=== PATIENT | male | born 1960 | race Asian ===

== ENCOUNTER 2023-01-27 21:30 | Inpatient (IN) | payer OTHER ==
[~2023-01-27] VITALS: Ht 177.8 cm; Wt 71.4 kg
--- NOTE | 2023-01-27 21:30 | NUR ---
PT RONAN ALS. TAKEN TO BED 10
--- NOTE | 2023-01-27 21:30 | NUR ---
GREGA FROM [place] WITH ELEVATED HR AND HOT TO TOUCH. HR IS 145. PT RECEIVED A TOTAL OF 700CC FLUIDS IV ROBOTIC TECHNICIAN. PT WITH TRACH AND G-TUBE THAT HAS LARGE AMOUNT OF DRAINAGE COMING FROM SITE.
[2023-01-27 21:33] VITALS: BP 163/104; PULSE 99; RESP 20; TEMP 99.4
[2023-01-27 22:03] VITALS: O2SAT 95
--- NOTE | 2023-01-27 22:04 | NUR ---
RN MADE AWARE
--- NOTE | 2023-01-27 22:04 | NUR ---
PT ARRIVED ON 2L VIA TRACH. PLACED PT ON COOL AEROSOL, 7L 30% FIO2. PT SPO2 IS 95%, WILL CONT TO MONITOR.
[2023-01-27 22:16] VITALS: PULSE 140; RESP 18; O2SAT 97
--- NOTE | 2023-01-27 22:30 | NUR ---
UA OBTAINED VIA F/C
[2023-01-27 22:40] LABS: APPEARANCE,URINE CLEAR (CLEAR); BILIRUBIN,URINE NEGATIVE (NEGATIVE); BLOOD, URINE NEGATIVE (NEGATIVE); COLOR,URINE YELLOW (YELLOW); LEUKOCYTE ESTERASE ,URINE NEGATIVE (NEGATIVE); NITRITE, URINE NEGATIVE (NEGATIVE); PH,URINE 7.5 (5.0-9.0); UGLUCOSE NEGATIVE (NEGATIVE)
[2023-01-27] MEDS ORDERED: DOXYCYCLINE 100 MG in DEXTROSE 5% 100 ML IV ONE (22:45)
[2023-01-27] MEDS ORDERED: NACL 0.9% 2,000 ML IV ONE (22:45)
[2023-01-27 22:49] LABS: BASOPHILS # (AUTO) 0.1 K/uL (0.00-0.22); BASOPHILS % (AUTO) 1.3 % (0.0-2.0); EOSINOPHILS # (AUTO) 0.3 K/uL (0-0.4); EOSINOPHILS % (AUTO) 3.4 % (0.0-4.0); HEMATOCRIT 38.1 % (36-52); HEMOGLOBIN 12.6 g/dL (12.0-18.0); LYMPHOCYTES # (AUTO) 1.6 K/uL (2.0-11.5); LYMPHOCYTES % (AUTO) 16.9 % (20.5-51.1); MEAN CORPUSCULAR HEMOGLOBIN 26 pg (27-31); MEAN CORPUSCULAR HGB CONC 33 g/dL (33-37); MEAN CORPUSCULAR VOLUME 79.4 fL (80-94); MONOCYTES # (AUTO) 0.6 K/uL (0.8-1.0); MONOCYTES % (AUTO) 6.7 % (1.7-9.3); NEUTROPHILS # (AUTO) 6.8 K/uL (1.8-7.7); NEUTROPHILS % (AUTO) 71.7 % (42.2-75.2); PLATELET COUNT (AUTO) 651 K/uL (140-450); RED BLOOD CELL COUNT(AUTO) 4.79 MIL/uL (4.20-6.10); RED CELL DISTRIBUTION WIDTH 17.1 % (11.6-13.7); WHITE BLOOD COUNT (AUTO) 9.5 K/uL (4.8-10.8)
[2023-01-27 23:07] LABS: ALBUMIN 3.7 g/dL (3.4-5.0); ANION GAP 17.6 (8-16); CARBON DIOXIDE 29.3 mmol/L (21-32); CREATININE 0.8 mg/dL (0.6-1.3); POTASSIUM 3.9 mmol/L (3.5-5.1); TOTAL BILIRUBIN 0.4 mg/dL (0.0-1.0)
[2023-01-27] MEDS ORDERED: cefTRIAXone 1,000 MG VIAL ONE ×2 (23:24→23:30)
--- NOTE | 2023-01-27 23:30 | NUR ---
nasal swab collected and sent to lab.
[2023-01-28] VITALS (9 sets, daily range): BP systolic 130–141; BP diastolic 77–96; PULSE 95–146; RESP 18–20; TEMP 97.1–98.8; O2SAT 95–99
[2023-01-28] MEDS ORDERED: VANCOMYCIN PER PHARMACY MC PRN (00:15)
[2023-01-28] MEDS ORDERED: NACL 0.9% 1,000 ML IV SCH (00:15)
--- NOTE | 2023-01-28 00:25 | NUR ---
PT TAKEN TO CT
[2023-01-28] MEDS ORDERED: VANCOMYCIN 1,000 MG in DEXTROSE 5% 250 ML IV SCH (00:40)
[2023-01-28] MEDS ORDERED: DOXYCYCLINE 100 MG VIAL IV ONE (00:48)
--- NOTE | 2023-01-28 00:50 | NUR ---
REPORT CALLED TO FRANTZ FAGAN
--- NOTE | 2023-01-28 01:40 | NUR ---
Patient will be admitted to care of Dr. Greenfield. Admited to Telemetry. Will go to room 108B. Belongings list completed. Report to Jovita LANDRY.
--- NOTE | 2023-01-28 01:50 | NUR ---
RECEIVED PT FROM ER/ SHAN , NON VERBAL , W/ TRACH , W/ G TUBE , EXTREMITIES CONTRACTURES , W/ HX OF CVA , W/ VASQUEZ CATH , BEDBOUND , CONNECTS TO O2 AT 7LPM BY RT , O2 SAT 99 5 TO 88 % TRANSFER TO BED BY MANUALLY , WILL DO FURTHER ADMISSION ASSESSMENT , ENSURE PT'S SAFETY , PUT PT ON FALL RISK PREVENTION MEASURES , LOW SINGH SCALE , G TUBE SITE THERE IS SLIGHTLY REDNESS ON G TUBE ORIFICE , BUT STILL SKIN INTACT , G TUBE SITE W/ GAUZE PAD THERE IS SMAL AMOUNT OF BROWN DISCHARGE LEAAKING FROM G TUBE ORIFICE - WILL MONITOR , WILL ENDORSE . ON TELE MONITOR BIT TACH TEMP RE CHECK 98 .8 F . Addendum: 01/28/23 at 0244 by Cleopatra Kruse RN STILL W/ ONGOING VIBRAMYCIN TIV FROM ER , ONCE IT FINISH , WILL GIVE VANCO TIV ORDERED .
[2023-01-28] MEDS ORDERED: VANCOMYCIN 1,000 MG VIAL ONE (04:10)
--- NOTE | 2023-01-28 04:50 | NUR ---
PT SHOWS AGITATION , KEEP TRYING TO PULL THE G TUBE AND TRACH AND TELE BOX , HR HIGHEST IS 160 - WILL REFER TO DR. PHILLIP . TEMP RE CHECK 98. 7 F
--- NOTE | 2023-01-28 04:52 | NUR ---
RT AT BEDSIDE
--- NOTE | 2023-01-28 05:56 | NUR ---
RE PAGED DR Matt FLIGHT AGENT DR MEDEL - RESPONDED - MADE NEW ORDERS AND WILL CARRY OUT . INFORMED DR. MEDEL PT HAD HIGHEST HR UP TO 165 THE LOWEST IS 130 THE LATEST IS 135 - PER DR Vernell MEDEL - CONT. TO MONITOR .
[2023-01-28] MEDS: LORazepam 2 MG/ML VIAL IVP PRN (06:05)
[2023-01-28] MEDS ORDERED: PIPERACILLIN/TAZOBACTAM 3.375 GM VIAL IV ONE (06:15)
[2023-01-28] MEDS: PIPERACILLIN/TAZOBACTAM 3.375 GM in DEXTROSE 5% 50 ML IV SCH ×3 (06:22→18:41)
--- NOTE | 2023-01-28 07:05 | NUR ---
STILL HR 150'S , ATIVAN GIVEN STILL AGITATES , WILL SUGGESTING RESTRAINT , FLACC 7 - NO PAIN MED , AFEBRILE REFERRED TO DR. STARK - THE TEXT FOR DR. STARK I SHOWS IT TO FRANTZ CHAWLA , I TELLS HER SHE HAVE TO FF UP FROM DR. STARK THE FURTHER ORDERS . FRANTZ CHAWLA VERBALIZES UNDERSTANDING .
--- NOTE | 2023-01-28 07:18 | NUR ---
ENDORSED THE PT FOR CONT. OF CARE .
--- NOTE | 2023-01-28 07:19 | NUR ---
RECEIVED BEDSIDE REPORT FROM MORNING SHIFT FOR CONTINUITY OF CARE. PT IS AWAKE, CURRENT HR IS 150, ON TRACH. WILL REVIEW AND CONTINUE POC.
[2023-01-28] MEDS ORDERED: HALOPERIDOL IM 5 MG/ML VIAL IM PRN (07:45)
[2023-01-28] MEDS ORDERED: METOPROLOL 5 MG/5 ML VIAL IV SCH (08:04)
--- NOTE | 2023-01-28 08:35 | NUR ---
PT'S HR IS 150, MD ORDERED METOPROLOL 5MG IV ONCE.
[2023-01-28] MEDS: METOPROLOL 25 MG TAB PO SCH ×2 (09:20→20:39)
--- NOTE | 2023-01-28 09:25 | NUR ---
METOPROLOL PO NOT GIVEN, GTUBE IS OUT AND INFECTED. METOPROLOL IV GIVEN AN HOUR AGO. PT IS STABLE NORMAL HR.
--- NOTE | 2023-01-28 09:30 | NUR ---
PT HR IS 90 AND BP IS 111/73. PT IS STABLE, WILL CONTINUE TO MONITOR.
[2023-01-28 10:05] LABS: BASOPHILS # (AUTO) 0.1 K/uL (0.00-0.22); BASOPHILS % (AUTO) 0.5 % (0.0-2.0); EOSINOPHILS # (AUTO) 0.2 K/uL (0-0.4); HEMATOCRIT 36.1 % (36-52); HEMOGLOBIN 11.8 g/dL (12.0-18.0); LYMPHOCYTES # (AUTO) 1.2 K/uL (2.0-11.5); LYMPHOCYTES % (AUTO) 10.9 % (20.5-51.1); MEAN CORPUSCULAR HEMOGLOBIN 27 pg (27-31); MEAN CORPUSCULAR HGB CONC 33 g/dL (33-37); MEAN CORPUSCULAR VOLUME 81.3 fL (80-94); MONOCYTES # (AUTO) 0.9 K/uL (0.8-1.0); MONOCYTES % (AUTO) 8.5 % (1.7-9.3); NEUTROPHILS # (AUTO) 8.3 K/uL (1.8-7.7); NEUTROPHILS % (AUTO) 78.1 % (42.2-75.2); PLATELET COUNT (AUTO) 576 K/uL (140-450); RED BLOOD CELL COUNT(AUTO) 4.45 MIL/uL (4.20-6.10); RED CELL DISTRIBUTION WIDTH 17.4 % (11.6-13.7); WHITE BLOOD COUNT (AUTO) 10.6 K/uL (4.8-10.8)
[2023-01-28 10:15] LABS: ANION GAP 11.8 (8-16); CARBON DIOXIDE 33.9 mmol/L (21-32); CREATININE 0.7 mg/dL (0.6-1.3); POTASSIUM 3.7 mmol/L (3.5-5.1)
[2023-01-28] MEDS ORDERED: DEXT 5% / NACL 0.9% 500 ML IV SCH (11:50)
[2023-01-28] MEDS: DEXT 5% / NACL 0.45% 1,000 ML IV SCH ×2 (12:28→23:02)
--- NOTE | 2023-01-28 12:50 | NUR ---
SPUTUM DONE AND SENT TO LAB
[2023-01-28] MEDS ORDERED: bisacodyL 10 MG SUPP RC SCH (13:22)
--- NOTE | 2023-01-28 16:00 | NUR ---
GTUBE WAS REMOVED, COLONOSTOMY BAG PLACED. DR SPENCER IS GOING TO PUT THE GTUBE BACK TOMORROW 01/29/23.
[2023-01-28] MEDS: VANCOMYCIN 1,000 MG in DEXTROSE 5% 250 ML IV SCH (16:35)
[2023-01-28] MEDS: METOCLOPRAMIDE 10 MG/2 ML INJ VIAL IVP SCH (16:35)
[2023-01-28] MEDS ORDERED: NACL 0.9% 500 ML IV ONE ×2 (17:45)
[2023-01-28] MEDS ORDERED: DILTIAZEM 25 MG/5 ML VIAL IVP ONE (18:00)
[2023-01-28 18:10] LABS: ANION GAP 12.7 (8-16); CARBON DIOXIDE 31.7 mmol/L (21-32); CREATININE 0.7 mg/dL (0.6-1.3); POTASSIUM 3.4 mmol/L (3.5-5.1)
--- NOTE | 2023-01-28 19:30 | NUR ---
ENDORSE PT TO FRUIT HARVEST WORKER NURSE FOR CONTINUITY OF CARE. PT IS STABLE, NO SIGNS OF DISTRESS. K COVERAGE ENDORSED, INFORMED. CALL LIGHT WITHIN REACH.
--- NOTE | 2023-01-28 19:31 | NUR ---
RECEIVED PT FROM MORNING SHIFT NURSE. PT IS APHASIC AND BEDBOUND. PT IS ON T-PIECE 8LPM WITH FIO2 OF 28% AND ON NPO. PT HAS IV ON LEFT HAND GAUGE 20 RUNNING WITH D5 1/2 NS AT 100ML/HR. PT HAS COLOSTOMY BAG AND G-TUBE WAS REMOVED THIS MORNING. PT HAS REDNESS ON SACRAL AREA AND ON ST IN TELE MONITOR. NO S/S OF RESPIRATORY DISTRESS NOTED. ALL SAFETY MEASURES IMPLEMENTED. BED IN LOW POSITION, BED WHEELS ON LOCK AND CALL LIGHT WITHIN REACH.
[2023-01-28] MEDS ORDERED: KCL 20 MEQ IN 100 mL PREMIX 100 ML IV ONE (19:40)
--- NOTE | 2023-01-28 20:37 | NUR ---
SCHEDULED AND PRESCRIBED MEDICATION WAS GIVEN TO PT PER MD ORDER EXCEPT LOPRESSOR DUE TO NO MEANS OF MEDICATION ACCESS FOR THE PT. ALL SAFETY MEASURES IMPLEMENTED. BED IN LOW POSITION, BED WHEELS ON LOCK AND CALL LIGHT WITHIN REACH.
--- NOTE | 2023-01-28 22:00 | NUR ---
SUCTIONED AND TURNED THE PT. NO RESPIRATORY DISTRESS NOTED. ALL SAFETY MEASURES IMPLEMENTED. BED IN LOW POSITION, BED WHEELS ON LOCK AND CALL LIGHT WITHIN REACH.
[2023-01-29] VITALS (9 sets, daily range): BP systolic 120–151; BP diastolic 77–94; PULSE 72–124; RESP 18–20; TEMP 97.6–98.6; O2SAT 94–100
[2023-01-29] MEDS: PIPERACILLIN/TAZOBACTAM 3.375 GM in DEXTROSE 5% 50 ML IV SCH ×5 (00:03→23:34)
--- NOTE | 2023-01-29 00:03 | NUR ---
SCHEDULED AND PRESCRIBED MEDICATION WAS GIVEN TO PT PER MD ORDER. ALL SAFETY MEASURES IMPLEMENTED. BED IN LOW POSITION, BED WHEELS ON LOCK AND CALL LIGHT WITHIN REACH.
--- NOTE | 2023-01-29 02:00 | NUR ---
PT IS ON SLEEP. CHEST RISE AND FALL SYMMETRICALLY NOTED. RESPIRATION IS EVEN AND UNLABORED. ALL SAFETY MEASURES IMPLEMENTED. BED IN LOW POSITION, BED WHEELS ON LOCK AND CALL LIGHT WITHIN REACH.
[2023-01-29] MEDS: VANCOMYCIN 1,000 MG in DEXTROSE 5% 250 ML IV SCH (03:27)
--- NOTE | 2023-01-29 04:00 | NUR ---
MORNING CARE WAS GIVEN TO PT. SUCTION THE PT, CLEANED AND CHANGED GOWN, CHUCKS, LINENS AND BLANKET. EMPTIED COLOSTOMY BAD WITH GASTRIC OUTPUT OF 100ML. ALL SAFETY MEASURES IMPLEMENTED. BED IN LOW POSITION, BED WHEELS ON LOCK AND CALL LIGHT WITHIN REACH.
--- NOTE | 2023-01-29 07:29 | NUR ---
PT IS STABLE. ENDORSED PT TO MORNING SHIFT NURSE FOR CONTINUITY OF CARE.
--- NOTE | 2023-01-29 07:50 | NUR ---
RECEIVED PATIENT ON 7L OXYGEN ON TRACH, PATIENT SATURATIONS 98%. NO SIGN OF DISTRESS. WILL CONTINUE TO MONITOR.
--- NOTE | 2023-01-29 09:03 | NUR ---
PATIENT HAS BEEN SCREENED AND CATEGORIZED HIGH NUTRITION RISK. PATIENT WILL BE SEEN WITHIN 1-2 DAYS OF ADMISSION. 01/29/23-01/30/23 FNS CONSULT FOR PATIENT FOR UNHEALED WOUND AND LOW SINGH SCORE AND POSSIBLE G-TUBE RECOMMENDATION RECEIVED ON 01/26/23. LEFTY HERNANDEZ RD
[2023-01-29 09:49] LABS: BASOPHILS % (AUTO) 0.7 % (0.0-2.0); EOSINOPHILS # (AUTO) 0.4 K/uL (0-0.4); EOSINOPHILS % (AUTO) 5.7 % (0.0-4.0); HEMATOCRIT 33.8 % (36-52); HEMOGLOBIN 10.8 g/dL (12.0-18.0); LYMPHOCYTES # (AUTO) 1.6 K/uL (2.0-11.5); LYMPHOCYTES % (AUTO) 24.9 % (20.5-51.1); MEAN CORPUSCULAR HEMOGLOBIN 26 pg (27-31); MEAN CORPUSCULAR HGB CONC 32 g/dL (33-37); MEAN CORPUSCULAR VOLUME 81.9 fL (80-94); MONOCYTES # (AUTO) 0.6 K/uL (0.8-1.0); MONOCYTES % (AUTO) 9.9 % (1.7-9.3); NEUTROPHILS # (AUTO) 3.7 K/uL (1.8-7.7); NEUTROPHILS % (AUTO) 58.8 % (42.2-75.2); PLATELET COUNT (AUTO) 521 K/uL (140-450); RED BLOOD CELL COUNT(AUTO) 4.12 MIL/uL (4.20-6.10); RED CELL DISTRIBUTION WIDTH 17.4 % (11.6-13.7); WHITE BLOOD COUNT (AUTO) 6.3 K/uL (4.8-10.8)
[2023-01-29] MEDS: DEXT 5% / NACL 0.45% 1,000 ML IV SCH ×2 (10:00→18:46)
[2023-01-29] MEDS: METOPROLOL 5 MG/5 ML VIAL IV SCH ×4 (10:03→23:47)
[2023-01-29] MEDS: METOCLOPRAMIDE 10 MG/2 ML INJ VIAL IVP SCH ×3 (10:05→17:59)
[2023-01-29 10:06] LABS: ANION GAP 0.6 (8-16); CARBON DIOXIDE 30.6 mmol/L (21-32); POTASSIUM 3.2 mmol/L (3.5-5.1)
[2023-01-29] MEDS: KCL 20 MEQ IN 100 mL PREMIX 200 ML IV PRN (10:28)
--- NOTE | 2023-01-29 13:20 | NUR ---
DR. SPENCER WAS HERE AND NEW G-TUBE WAS PLACED. PATIENT TOLERATE PROCEDURE. DIETITIAN RECOMMENDATION RECEIVED FOR TUBE FEEDING: VITAL START FROM 20ML/HR (GOAL 75ML/HR) WITH FRESH WATER FLUSHING 175ML Q6HR. ADMISSION TEAM CALL FOR PATIENT'S ELIGIBILITY TO SIGN CONSENT. PATIENT'S NEXT KIN, CLAUDETTE GOLDSMITH ([phone]), CALLED AND LEFT CALL BACK PHONE NUMBER ([phone]). WILL CONTINUE TO MONITOR Addendum: 01/29/23 at 1958 by Naina Ramirez RN ENDORSE PATIENT TO PM SHIFT NURSE WHILE IV D51/2NS INFUSING, NEW G-TUBE IN PLACE BUT LEAKING. PATIENT'S BP (FROM 151/94 TO 134/73) AND PULSE FORM 109 TO 77 AFTER 3 DOSE METOPROLOL GIVEN; PM SHIFT NURSE AWARE THAT NEW G-TUBE IS LEAKING AND WILL F/U.
--- NOTE | 2023-01-29 14:46 | NUR ---
01/29/23 RD INITIAL ASSESSMENT COMPLETED PLEASE REFER TO NUTRITION ASSESSMENT UNDER CARE ACTIVITY FOR ESTIMATED NUTRITIONAL NEEDS. 1. RD RECOMMENDS VITAL A.F. AT GOAL RATE OF 75ML/HR WITH FWF OF 175ML Q6H TOLERATED OR PER MD. THIS WILL PROVIDE 2,160 CALORIES AND 135 GRAMS OF PROTEIN. START AT 20ML/HR AND INCREASE 20ML Q4H OR TOLERATED. 2. RD WILL CONTINUE TO FOLLOW GI ISSUES, TUBE FEEDING TOLERANCE, GRV, NUTRITION RELATED LAB VALUES, SKIN INTEGRITY AND WEIGHT. 3. RD TO FOLLOW-UP 2-3 DAYS, HIGH RISK LEFTY HERNANDEZ RD
--- NOTE | 2023-01-29 17:40 | NUR ---
LATER ENTRY FOR 01/29/2023, NURSE RECEIVE LAB CALL FOR VANCOMYCIN TROUGH 23.6 WHICH IS OVER 20. PHARMACY CALL WITH 10 MINUTES, AND RECEIVE ADVISE FROM PHARMACIST TO HOLD VANCOMYCIN UNTIL NEXT DAY AFTER RANDOM VANCOMYCIN TROUGH DRAW.
--- NOTE | 2023-01-29 19:35 | NUR ---
received patient from am nurse for continuity of care. pt is stable
--- NOTE | 2023-01-29 19:41 | NUR ---
PT SEEN AND ASSESSED. PT ON COOL AEROSOL MIST 6L AND 28% WITH SPO2 OF 98%. NO RESPIRATORY DISTRESS NOTED AT THIS TIME. SUCTION SMALL WHITE THICK SECRETIONS FROM TRACH TUBE.
[2023-01-30] VITALS (9 sets, daily range): BP systolic 126–144; BP diastolic 75–86; PULSE 65–103; RESP 18–19; TEMP 97.1–98.8; O2SAT 98–100
[2023-01-30] MEDS: DEXT 5% / NACL 0.45% 1,000 ML IV SCH (04:23)
[2023-01-30] MEDS: PIPERACILLIN/TAZOBACTAM 3.375 GM in DEXTROSE 5% 50 ML IV SCH ×4 (05:45→23:34)
[2023-01-30] MEDS: METOPROLOL 5 MG/5 ML VIAL IV SCH (05:47)
[2023-01-30 06:15] LABS: BASOPHILS % (AUTO) 0.5 % (0.0-2.0); EOSINOPHILS # (AUTO) 0.1 K/uL (0-0.4); EOSINOPHILS % (AUTO) 1.8 % (0.0-4.0); HEMATOCRIT 33.3 % (36-52); HEMOGLOBIN 10.7 g/dL (12.0-18.0); LYMPHOCYTES # (AUTO) 1.5 K/uL (2.0-11.5); LYMPHOCYTES % (AUTO) 22.6 % (20.5-51.1); MEAN CORPUSCULAR HEMOGLOBIN 26 pg (27-31); MEAN CORPUSCULAR HGB CONC 32 g/dL (33-37); MEAN CORPUSCULAR VOLUME 82.3 fL (80-94); MONOCYTES # (AUTO) 0.5 K/uL (0.8-1.0); NEUTROPHILS # (AUTO) 4.5 K/uL (1.8-7.7); NEUTROPHILS % (AUTO) 67.1 % (42.2-75.2); PLATELET COUNT (AUTO) 529 K/uL (140-450); RED BLOOD CELL COUNT(AUTO) 4.05 MIL/uL (4.20-6.10); RED CELL DISTRIBUTION WIDTH 17.3 % (11.6-13.7); WHITE BLOOD COUNT (AUTO) 6.7 K/uL (4.8-10.8)
[2023-01-30 06:32] LABS: ANION GAP 12.7 (8-16); CARBON DIOXIDE 31.3 mmol/L (21-32); CREATININE 0.9 mg/dL (0.6-1.3)
[2023-01-30] MEDS: KCL 20 MEQ IN 100 mL PREMIX 200 ML IV PRN (06:48)
--- NOTE | 2023-01-30 07:00 | NUR ---
RECEIVED BEDSIDE REPORT FROM NIGHTSHIFT NURSE. PT IS ASLEEP IN BED, NO SIGNS OF DISTRESS, WOKE TO NAME AND TOUCH. WILL CONTINUE WITH PT CARE.
[2023-01-30] MEDS: METOPROLOL 25 MG TAB PO SCH ×2 (08:37→20:07)
[2023-01-30] MEDS: DEXTROSE 5% 1,000 ML IV SCH ×2 (08:39→17:15)
[2023-01-30] MEDS: METOCLOPRAMIDE 10 MG/2 ML INJ VIAL IVP SCH ×3 (08:40→18:51)
[2023-01-30] MEDS: KCL 20 MEQ IN 100 mL PREMIX 200 ML IV SCH ×2 (08:40→18:50)
--- NOTE | 2023-01-30 10:28 | NUR ---
MASD TO ABDOMINAL WALL CHEMICAL BURN FROM GT SITE LEAKAGE. CLEANS WITH NS, APPLY Z GUARD BID AND PRN IF SOILING, COVER WITH DRY DRESSING. PENDING GI CONSULT.
--- NOTE | 2023-01-30 10:41 | NUR ---
PT RESTING COMFORTABLY. SATURATION 96% ON COOL AEROSOL, 28%. CALL LIGHT WITHIN REACH. WILL CONTINUE TO MONITOR.
--- NOTE | 2023-01-30 10:45 | NUR ---
WOUND CARE NOTE: SKIN ASSESSMENT DONE, PT WITH OLD HEALED SCAR TISSUE TO SACRALCOCCYX, PALE IN COLOR. PT. WITH LBMX1 DURING ASSESSMENT. MASD TO BUTTOCKS AND GROINS. SEVERE CONTRACTURES TO BILATERAL KNEES/HIPS. PT. WITH LOW SINGH SCALE AT HIGH RISK, CONTINUE TO FOLLOW PRESSURE INJURY PREVENTION INTERVENTIONS. -FREQUENT GABRIELE-CARE, APPLY Z GUARD TO BUTTOCKS AND GROINS BID AND PRN IF SOILING -POSITIONING: TURN AND REPOSITION PATIENT Q 2H OR SOONER USE PILLOWS TO KEEP BONY PROMINENCES FROM DIRECT CONTACT WITH SURFACES USE REPOSITIONING WEDGES TO PROVIDE 30-DEGREE ANGLE FOR SIDE LYING POSITIONS OFFLOADING OR FOAM DRESSING TO ALL TUBING TO PREVENT MEDICAL DEVICES RELATED PRESSURE INJURY -RE-EVALUATING AND MANAGING INCONTINENCE MONITOR SKIN CONDITION DURING POSITION CHANGE DO NOT MASSAGE REDNESS, BONY PROMINENCES FREQUENT GABRIELE-CARE AND PROVIDE BARRIER CREAMS PRN IF SOILING MOISTURE CONTROL BY OFFER BED RICKS/URINAL /ABSORBENT PAD TO WICK AND HOLD MOISTURE KEEP SKIN DRY AND PROTECT FROM FRICTION -MANAGE FRICTION/SHEAR/MOBILITY KEEP HOB AT THE LOWEST LEVEL OF ELEVATION NO MORE THAN 30 DEGREE UNLESS OTHERWISE CONTRAINDICATED USE LIFT SHEET OR TRANSFER DEVICE TO MOVE PATIENT AND PREVENT LATERAL SHEER. PROTECT HEELS, ELBOWS BONY PROMINENCES WITH SKIN BERRIES OR FOAM DRESSING IF EXPOSED TO FRICTION OFFLOAD BILATERAL HEELS BY PLACING PILLOWS UNDER CALVES AT ALL TIMES, UNLESS OTHERWISE CONTRAINDICATED -PRESSURE REDISTRIBUTION SURFACE THERAPY SAMMY ISOFLEX MATTRESS -NUTRITION: PLEASE FOLLOW RD RECOMMENDATIONS AND OFFER NUTRITION SUPPLEMENTS IF ORDERED. PLEASE CONTACT WOUND CARE NURSE FOR ANY QUESTION AND CHANGE OF WOUND CONDITION.
--- NOTE | 2023-01-30 11:24 | NUR ---
RECEIVED ORDER FOR RENEWAL OF RESTRAINTS. NEW RESTRAINTS ORDER EXPIRES 01/31/23 @1124.
[2023-01-30] MEDS: VANCOMYCIN 750 MG in DEXTROSE 5% 250 ML IV SCH ×2 (12:04→20:07)
[2023-01-30] MEDS: VALPROIC ACID 250 MG/5 ML UDC PO SCH ×2 (15:08→18:50)
[2023-01-30] MEDS: Z-GUARD PASTE TP SCH (15:09)
--- NOTE | 2023-01-30 19:20 | NUR ---
RECEIVED PT IN BED ASLEEP. NO S/SX OF PAIN NOR DISCOMFORT. NO ACUTE RESPIRATORY DISTRESS. G-TUBE CLAMPED. SKIN WARM AND DRY TO TOUCH. IVF INFUSING WELL ORDERED. BED IN THE LOWEST AND LOCKED POSITION FOR SAFETY, CALL LIGHT PLACED WITHIN REACH.
--- NOTE | 2023-01-30 20:10 | NUR ---
SCHEDULED MEDICATIONS GIVEN. ORAL CARE RENDERED. HEAD OF THE BED ELEVATED.
--- NOTE | 2023-01-30 21:50 | NUR ---
REPOSITIONED PT FOR COMFORT. HEAD OF THE BED ELEVATED. CALL LIGHT WITHIN REACH.
[2023-01-31] VITALS (13 sets, daily range): BP systolic 90–141; BP diastolic 54–89; PULSE 66–97; RESP 16–20; TEMP 98–98.8; O2SAT 88–100
--- NOTE | 2023-01-31 | NUR ---
PATIENT HAD A LARGE BOWEL MOVEMENT, CLEANED PT. G-TUBE SITE NOTED TO BE LEAKING, CLEANED AND CHANGED DRESSING. TRACH AND ORAL SUCTIONING DONE, ORAL CARE RENDERED. MADE COMFORTABLE IN BED. CALL LIGHT PLACED WITHIN REACH. HEAD OF THE BED ELEVATED.
[2023-01-31] MEDS: Z-GUARD PASTE TP SCH ×2 (00:36→15:45)
[2023-01-31] MEDS: DEXTROSE 5% 1,000 ML IV SCH (01:33)
--- NOTE | 2023-01-31 05:00 | NUR ---
AM CARE RENDERED. MADE COMFORTABLE IN BED. CALL LIGHT WITHIN REACH.
[2023-01-31] MEDS: PIPERACILLIN/TAZOBACTAM 3.375 GM in DEXTROSE 5% 50 ML IV SCH ×2 (05:06→15:32)
--- NOTE | 2023-01-31 06:24 | NUR ---
PATIENT IS ASLEEP. NO DISTRESS NOTED. ALL NEEDS ATTENDED TO. SAFETY PRECAUTIONS MAINTAINED DURING THE SHIFT, CALL LIGHT REMAINS WITHIN REACH.
--- NOTE | 2023-01-31 08:00 | NUR ---
received patient in bed, resting comfortably, trach to T-piece wit 28% fiO2 @ O2@ 6lpm. tolerating well. G-tube dressing soaked with black color drainage, G-tube site leaking, dressing changed, shift assessment done and documented, R hand mitten on for safety, checked and released for 15 minutes, no injury noted. will continue to monitor closely.
[2023-01-31 08:18] LABS: BASOPHILS % (AUTO) 0.6 % (0.0-2.0); EOSINOPHILS # (AUTO) 0.4 K/uL (0-0.4); EOSINOPHILS % (AUTO) 7.3 % (0.0-4.0); HEMATOCRIT 30.5 % (36-52); HEMOGLOBIN 9.7 g/dL (12.0-18.0); LYMPHOCYTES # (AUTO) 1.6 K/uL (2.0-11.5); MEAN CORPUSCULAR HEMOGLOBIN 26 pg (27-31); MEAN CORPUSCULAR HGB CONC 32 g/dL (33-37); MEAN CORPUSCULAR VOLUME 81.5 fL (80-94); MONOCYTES # (AUTO) 0.4 K/uL (0.8-1.0); MONOCYTES % (AUTO) 6.6 % (1.7-9.3); NEUTROPHILS # (AUTO) 3.2 K/uL (1.8-7.7); NEUTROPHILS % (AUTO) 57.5 % (42.2-75.2); PLATELET COUNT (AUTO) 477 K/uL (140-450); RED BLOOD CELL COUNT(AUTO) 3.74 MIL/uL (4.20-6.10); RED CELL DISTRIBUTION WIDTH 16.7 % (11.6-13.7); WHITE BLOOD COUNT (AUTO) 5.6 K/uL (4.8-10.8)
[2023-01-31 08:26] LABS: ANION GAP 10.4 (8-16); CARBON DIOXIDE 29.7 mmol/L (21-32); CREATININE 0.7 mg/dL (0.6-1.3); POTASSIUM 3.1 mmol/L (3.5-5.1)
[2023-01-31] MEDS: VALPROIC ACID 250 MG/5 ML UDC PO SCH ×3 (10:33→17:00)
[2023-01-31] MEDS: METOCLOPRAMIDE 10 MG/2 ML INJ VIAL IVP SCH ×3 (10:33→17:41)
[2023-01-31] MEDS: METOPROLOL 25 MG TAB PO SCH ×2 (10:33→23:15)
[2023-01-31] MEDS: VANCOMYCIN 750 MG in DEXTROSE 5% 250 ML IV SCH (10:34)
--- NOTE | 2023-01-31 12:00 | NUR ---
G-tube site leaking, dressing changed, will continue to monitor.
[2023-01-31] MEDS ORDERED: POTASSIUM CHL 20 MEQ/ 1/2 NS 1,000 ML IV SCH (12:35)
--- NOTE | 2023-01-31 14:00 | NUR ---
CHECKED ON PT AND O2 SATURATION WAS DOWN TO 88%. SUCTION MODERATE AMOUNT OF THICK GREEN SECRETIONS WITH ESTRADA VIA TRACH. TITRATED O2 TO 10L AND 40%. O2 SATURATION NOW 93% CALL LIGHT ACCESSIBLE AND WITHIN REACH.
--- NOTE | 2023-01-31 15:26 | NUR ---
01/31/23 RD FOLLOW UP COMPLETED PLEASE REFER TO NUTRITION ASSESSMENT UNDER CARE ACTIVITY FOR ESTIMATED NUTRITIONAL NEEDS. 1. RD RECOMMENDS ONCE MEDICALLY APPROPRIATE TO START TUBE FEEDING OF VITAL A.F. AT 20 ML PER HOUR AND INCREASE BY 20ML Q4H. GOAL RATE OF 60ML/HR WITH FWF OF 250ML Q6H. THIS WILL PROVIDE 1,728 CALORIES AND 105 GRAMS OF PROTEIN, MEETING AT LEAST 75% OF PATIENTS ESTIMATED NUTRITIONAL NEEDS. 2. RD WILL MONITOR TUBE FEEDING, WEIGHT, GI ISSUES AND NUTRITION RELATED LAB VALUES. 3. RD TO FOLLOW-UP 2-3 DAYS, HIGH RISK LEFTY HERNANDEZ RD
[2023-01-31] MEDS: POTASSIUM CHLORIDE 20% 40 MEQ/15 ML UDC GT SCH ×2 (15:31→17:30)
[2023-01-31] MEDS ORDERED: ZOS4.5PM IV (16:20)
[2023-01-31] MEDS ORDERED: VALP-22 PO (16:20)
[2023-01-31] MEDS ORDERED: METO25TA PO (16:20)
--- NOTE | 2023-01-31 16:30 | NUR ---
G-tube dressing soaked with black colored drainage, dressing changed, Dr. Greenfield made aware and Dr. Tompkins with orders.
--- NOTE | 2023-01-31 16:35 | NUR ---
G-tube pulled out and placed colostomy bag to gravity drainage as ordered. will monitor drainage output
--- NOTE | 2023-01-31 16:54 | NUR ---
[facility]. FAXED ALL PAPERWORK TO [facility] AND [facility] LOCATED AT [address] [id number]. SPOKE WITH CECILIA AT [facility] AND PATIENT WILL BE GOING BACK TO ROOM 215-[address] UNDER DR CUEVAS. TRANSPORTATION ARRANGED WITH [facility] WITH A [id number] DOWNSTAIRS MAID TIME SUBACUTE AUTH#[id number] AND TRANSPORT AUTH#[id number] GIVEN BY DIAZ AT [facility].NURSE GLADIS AND CLAUDETTE AWARE OF THE ABOVE INFORMATION. Addendum: 01/31/23 at 1715 by KATHIE HERNANDEZ CALLED [facility] AND PLACED TRANSPORT ON WILL CALL.
[2023-01-31] MEDS: POTASSIUM CHL 20 MEQ/D5-1/2NS 1,000 ML IV SCH (17:41)
--- NOTE | 2023-01-31 17:49 | NUR ---
PT SATURATION IS MUCH IMPROVED. WAS AT 99% ON 10L 30% FiO2. STIL SOUNDING A BIT COARSE. SUCTION LARGE AMOUT OF THICK WHITE SECRETIONS. DECREASED FLOW TO 7L AND FiO2 TO 28%. WILL CONTINUE TO MONITOR PT. CALL LIGHT WITHIN REACH ON BED.
--- NOTE | 2023-01-31 18:43 | NUR ---
Dr. Palacio came in and seen the patient.
[2023-01-31] MEDS ORDERED: PIPERACILLIN/TAZOBACTAM 4.5 GM in DEXTROSE 5% 100 ML IV SCH (20:00)
--- NOTE | 2023-01-31 22:30 | NUR ---
BP 90/54 - WILL RE CHECK BP .
--- NOTE | 2023-01-31 23:00 | NUR ---
BP RE CHECK 90/ 56 - WILL CONT. TO MONITOR
--- NOTE | 2023-01-31 23:07 | NUR ---
PER PHARMACY IT IS OK TO GIVE ZOSYN PIGGYBACK W/ PRESENT IVF W/ KCL - WILL ENDORSE .
[2023-02-01] VITALS (17 sets, daily range): BP systolic 96–174; BP diastolic 60–119; PULSE 85–184; RESP 18–21; TEMP 98.5–100.6; O2SAT 86–100
--- NOTE | 2023-02-01 | NUR ---
2100 MEDICATIONS WERE ADMINISTERED TO PATIENT WITHOUT ANY ISSUES WITH IV. PATIENT'S MAGNESIUM WAS LOW (1.5) AND MAGNESIUM ON EMAR HAD . CONTACTED PHARMACY, SPOKE WITH PHARMACIST TJ, AND ASKED HIM TO RENEW MAG SINCE IT HAD NOT BEEN GIVEN. HE CHECKED EMAR AND SAW THAT IT HAD WITHOUT BEING ADMINISTERED AND RE-RELEASED IT. ADMINISTERED MAGNESIUM IVPB TO PATIENT AT 2330 (AFTER 0000 IVPB ANTIBIOTIC FINISHED). WILL CONTINUE TO OBSERVE PATIENT. Addendum: 02/02/23 at 238 by Florentin Fox RN WRONG DATE. Addendum: 02/02/23 at 238 by Florentin Fox RN DATE SHOULD BE 02-02
--- NOTE | 2023-02-01 | NUR ---
ROUNDS , AWAKE , FLACC 0 , BP 111/60 , OH 85 , RR 18 , O2 SAT 95 % , AFEBRILE , WILL CONT. TO MONITOR
--- NOTE | 2023-02-01 01:27 | NUR ---
RT AT BEDSIDE , SUNCTIONING
--- NOTE | 2023-02-01 04:00 | NUR ---
DE SATURATING , O2 SAT 88 % , 87 % , FEBRILE - REFER TO RT STAT HR 180'S - INFORM CHARGE NURSE .
--- NOTE | 2023-02-01 04:10 | NUR ---
tachycardic , temp check 100.6 - will refer to franklyn raman do tsb . Addendum: 02/01/23 at 0419 by Cleopatra Kruse RN temp 100.6 f
--- NOTE | 2023-02-01 04:18 | NUR ---
rt at bedside
--- NOTE | 2023-02-01 04:28 | NUR ---
paged dr. van , pt no g tube , npo , rt at bedside , o2 sat 90 % , will cont. to monitor
--- NOTE | 2023-02-01 04:36 | NUR ---
NO CALL BACK FROM DR. ROWE , WILL RE KAIT , RT SUGGESTING ABG , AND BI PAP , O2 SAT FLACTUATING TO 87 - 88 - - 90 THE ONLY HIGHEST IS 90 %
--- NOTE | 2023-02-01 04:50 | NUR ---
PT CLOSELY MONITORING , INSPITE OF THIS MY CHARGE NURSE ALLOW ME TO HAVE 30 MINS. BREAK , ENDORSED PT TO CANDIAD GONZALEZ
--- NOTE | 2023-02-01 05:00 | NUR ---
STILL NO CALL BACK FROM DR. ROWE , INFORM CHARGE NURSE , [facility]USTRIAL C/O CANDIDA LEE
--- NOTE | 2023-02-01 05:09 | NUR ---
SANITATION MANAGER TALK DR. ROWE MADE NEW ORDERS AND WILL CARRY OUT .
[2023-02-01] MEDS ORDERED: ACETAMINOPHEN 100 ML IV PRN ×2 (05:10→10:04)
[2023-02-01] MEDS ORDERED: DILTIAZEM 25 MG/5 ML VIAL IVP SCH (05:10)
[2023-02-01] MEDS ORDERED: DILTIAZEM 25 MG/5 ML VIAL IVP ONE (05:27)
--- NOTE | 2023-02-01 05:34 | NUR ---
CARDIZEM TIV - GIVEN C/O MEE'DEVYN KIDD - INFORMED PHARMACIST Addendum: 02/01/23 at 0640 by Cleopatra Kruse RN INFORM PHARMACIST - WILL GIVE CARDIZEM , W/O WAITING TO APPEAR IT TO THE EMAR HR 180'S , PHARMACIAT AGREE . Addendum: 02/01/23 at 0642 by Cleopatra Kruse RN AT 0535 BP 137/ 79 , HR 188 -CARDIZEM SLOW IV PUSH BY BERNABE DUDLEY TO MONITOR .
--- NOTE | 2023-02-01 05:45 | NUR ---
g 22 iv canulla at left hand inserted by chelsy villanueva , min. bleeding , procedure tolerated well by the pt .
--- NOTE | 2023-02-01 06:00 | NUR ---
i spoke earlier [facility] pharmacist give zosyn tiv at 0600 . can't scan the zosyn
--- NOTE | 2023-02-01 06:03 | NUR ---
0400 - PT DESATURATING WITH SPO2 86% HR 180s ON 60% CA. PT FEBRILE AND TACHYPNEIC. SUCTIONED AND LAVAGED ONLY SMALL AMOUNTS OF THICK YELLOW SECRETIONS WITH NO CHANGE IS PT STATUS. REQUESTED ABG TO VERIFY SPO2. 0444 - ABG RETRIEVED PH 7.55 PCO2 25.7 PO2 43.2 HCO3 22.1 ON 60% CA 0450 - NOTIFIED DR CROWDER OF PT STATUS AND HE APPROVED TO SWITCH TRACH FROM CUFFLES 8.0 PORTEX TO 8.[address] ON CPAP. TRACH CHANGED SUCCESSFULLY WITH BENITO MURRAY AT BEDSIDE. PT PLACED ON CPAP +5 PS 12 60 % WITH SPO2 97% 0500 - ORDERED XRAY 0530 - ABG ORDERED. PT IMPROVING WITH PH 7.53 PCO2 28.8 PO2 62.3 HCO3 23.7
--- NOTE | 2023-02-01 06:30 | NUR ---
TEMP RE CHECK 100.2 F - WILL CONT. TO TSB
--- NOTE | 2023-02-01 06:31 | NUR ---
ABG RESULTS DONE AT 0535 ENDORSED TO MATTHEW HAMMONDS/RN TO REPORT TO DR ROWE BECAUSE IM STILL IN THE ROOM MONITORING THE PATIENT. MATTHEW VERBALIZED THAT SHE WILL REPORT ABG RESULTS TO THE DOCTOR.
[2023-02-01] MEDS: Z-GUARD PASTE TP SCH ×2 (06:34→13:00)
[2023-02-01] MEDS: POTASSIUM CHL 20 MEQ/D5-1/2NS 1,000 ML IV SCH ×2 (06:58→18:49)
[2023-02-01] MEDS: PIPERACILLIN/TAZOBACTAM 4.5 GM in DEXTROSE 5% 100 ML IV SCH ×4 (07:00→23:01)
--- NOTE | 2023-02-01 07:30 | NUR ---
ENDORSED PATIENT TO PM NURSE FOR CONTINUATION OF CARE. INFORMED PM NURSE OF ANTIBIOTICS IV HAVING TWO WITH THE SAME STICKER. PM NURSE CONFIRMS. Addendum: 02/01/23 at 2016 by REGINA JACK RN TIME ERROR
--- NOTE | 2023-02-01 07:38 | NUR ---
CAN'T REACH DR. ROWE . INFORM DR. STARK ABOUT THE PRESENT CONDITION OF THE PT , T 99.1F , HR 134 , BP 131/71 , RR 18 , ON TRACH TO VENT , PER DR. STARK - NICOLETTE CONTVernell MONITOR THE PT IN THE ROOM . Addendum: 02/04/23 at 0751 by Cleopatra Kruse RN INFORMED DR. STARK ABOUT ABG RESULT THAT WAS TAKEN AT 0535 TODAY , PT IS ALREADY ON VENTILATOR , PER DR. LINCOLN DUDLEY TO MONITOR PT AND HE WILL COME AND SEE THE PT .
--- NOTE | 2023-02-01 07:40 | NUR ---
endorsed to chelsy romero for cont. of care , endorsed to chelsy romero to inform pulmonogist about pt's abg and update dr. mg regards pt is now on ventilator . chelsy Romero verbalizes uderstanding .
--- NOTE | 2023-02-01 07:45 | NUR ---
received patient from night nurse. patient had tachycardia. informed. new orders given
[2023-02-01 09:24] LABS: BASOPHILS % (AUTO) 0.3 % (0.0-2.0); EOSINOPHILS # (AUTO) 0.1 K/uL (0-0.4); EOSINOPHILS % (AUTO) 0.4 % (0.0-4.0); LYMPHOCYTES # (AUTO) 1.1 K/uL (2.0-11.5); MEAN CORPUSCULAR HEMOGLOBIN 26 pg (27-31); MEAN CORPUSCULAR HGB CONC 32 g/dL (33-37); MEAN CORPUSCULAR VOLUME 81.1 fL (80-94); MONOCYTES # (AUTO) 0.5 K/uL (0.8-1.0); MONOCYTES % (AUTO) 3.8 % (1.7-9.3); NEUTROPHILS # (AUTO) 10.8 K/uL (1.8-7.7); NEUTROPHILS % (AUTO) 86.5 % (42.2-75.2); PLATELET COUNT (AUTO) 458 K/uL (140-450); RED BLOOD CELL COUNT(AUTO) 3.82 MIL/uL (4.20-6.10); RED CELL DISTRIBUTION WIDTH 16.8 % (11.6-13.7); WHITE BLOOD COUNT (AUTO) 12.4 K/uL (4.8-10.8)
[2023-02-01] MEDS: VALPROIC ACID 250 MG/5 ML UDC PO SCH ×3 (09:24→17:00)
[2023-02-01 09:33] LABS: ANION GAP 12.3 (8-16); CARBON DIOXIDE 26.5 mmol/L (21-32); CREATININE 0.8 mg/dL (0.6-1.3)
[2023-02-01 09:36] LABS: POTASSIUM 2.8 mmol/L (3.5-5.1)
[2023-02-01] MEDS: METOCLOPRAMIDE 10 MG/2 ML INJ VIAL IVP SCH ×3 (09:41→18:02)
[2023-02-01] MEDS: METOPROLOL 5 MG/5 ML VIAL IV PRN (09:44)
[2023-02-01] MEDS ORDERED: MAG SULF 2000 MG/WATER PREMIX 50 ML IV SCH ×2 (10:00→22:20)
[2023-02-01] MEDS ORDERED: POTASSIUM CHLORIDE 10 MEQ TABER PO ONE (10:00)
[2023-02-01] MEDS ORDERED: POTASSIUM CHLORIDE 20% 40 MEQ/15 ML UDC GT SCH (10:01)
--- NOTE | 2023-02-01 10:10 | NUR ---
PT WENT APNEIC AND TRIGGERED BACK UP SETTINGS TWICE . PT WAS PLACED ON AC VC 450 RR16 +5 50% DUE TO PT KEPT GOING APENIC. . ABG WILL FOLLOW DUE TO CHANGE IN VENT SETTINGS. PT TOLERATING VENT SETTINGS WELL. NO DISTRESS NOTED. WILL CONTINUE TO MONITOR. RN AWARE OF CHANGES
--- NOTE | 2023-02-01 11:38 | NUR ---
ABG RESULTS IN FIO2 TITRATED TO 28% FRIM 50%
--- NOTE | 2023-02-01 12:00 | NUR ---
patient stabalized. heart rate below 100 above 90. pressure stable on ventilator. urine bag drained
[2023-02-01] MEDS ORDERED: ALBUTEROL SULFATE/IPRATROPIU 3 ML SOL IH ONE (13:34)
[2023-02-01] MEDS ORDERED: ALBUTEROL SULFATE/IPRATROPIU 3 ML SOL IH PRN (13:35)
--- NOTE | 2023-02-01 13:56 | NUR ---
ROUNDED WITH DR HERNANDEZ FOR PT DR ORDERED PT TO BE ON FULL SUPPORT TODAY AND TRY CPAP TRIALS STARTING 02-02-23. IF HE PASSES CPAP TRIALS THEN PROCEED TO TBAR ON 02-03-23 . ORDERED Q6 DUO WELL.
[2023-02-01] MEDS ORDERED: KCL 20 MEQ IN 100 mL PREMIX 100 ML IV SCH (15:04)
[2023-02-01] MEDS ORDERED: ALBUTEROL SULFATE/IPRATROPIU 3 ML SOL IH SCH (19:00)
[2023-02-01] MEDS: ALBUTEROL SULFATE/IPRATROPIU 3 ML SOL IH SCH (19:03)
--- NOTE | 2023-02-01 19:30 | NUR ---
ENDORSED PATIENT TO PM NURSE FOR CONTINUATION OF CARE. INFORMED PM NURSE OF ANTIBIOTICS IV HAVING TWO WITH THE SAME STICKER. PM NURSE CONFIRMS.
--- NOTE | 2023-02-01 19:30 | NUR ---
RECEIVED REPORT FROM DAY SHIFT NURSE REGINA FOR CONTINUITY OF CARE. PATIENT IS APHASIC. PATIENT IS ON TRACH TO VENT. IV IS A LFA 22G AND A L HAND 22G; RUNNING KCL 20MEQ 1/2NS 70ML. PATIENT IS ON CATHETER AND HAS COLOSTOMY BAG. BAG IS EMPTY AND INTACT. WAS INFORMED BY DAY SHIFT NURSE THAT GTUBE WAS REMOVED FROM PATIENT AND THAT PATIENT WAS SEEN BY DR. HILLIARD AND IS CURRENTLY PENDING UPDATE ON SURGERY. PATIENT IS LYING SEMI-FOWLERS IN BED. BED IS IN LOWEST POSITION, WHEELS LOCKED, CALL LIGHT IN PLACE. WILL CONTINUE TO OBSERVE PATIENT.
[2023-02-01] MEDS: FAMOTIDINE 20 MG/2 ML VIAL IVP SCH (21:47)
[2023-02-02] VITALS (18 sets, daily range): BP systolic 101–140; BP diastolic 62–81; PULSE 78–123; RESP 18–23; TEMP 97.4–98.9; O2SAT 100
--- NOTE | 2023-02-02 | NUR ---
2100 MEDICATIONS WERE ADMINISTERED TO PATIENT WITHOUT ANY ISSUES WITH IV. PATIENT'S MAGNESIUM WAS LOW (1.5) AND MAGNESIUM ON EMAR HAD . CONTACTED PHARMACY, SPOKE WITH PHARMACIST TJ, AND ASKED HIM TO RENEW MAG SINCE IT HAD NOT BEEN GIVEN. HE CHECKED EMAR AND SAW THAT IT HAD WITHOUT BEING ADMINISTERED AND RE-RELEASED IT. ADMINISTERED MAGNESIUM IVPB TO PATIENT AT 2330 (AFTER 0000 IVPB ANTIBIOTIC FINISHED). WILL CONTINUE TO OBSERVE PATIENT.
[2023-02-02] MEDS: ALBUTEROL SULFATE/IPRATROPIU 3 ML SOL IH SCH ×4 (01:00→19:14)
[2023-02-02] MEDS: Z-GUARD PASTE TP SCH ×2 (01:50→13:00)
--- NOTE | 2023-02-02 02:30 | NUR ---
PATIENT HAD GREEN STOOL ON BUTTOCKS AND CHUCKS PADS. PATIENT WAS CLEANED WITH THE ASSISTANCE OF FRANTZ JOSEPH. NEW CHUCKS WERE PLACED UNDER PATIENT. PATIENT'S BUTTOCKS HAD REDNESS; Z-GUARD WAS APPLIED TO BUTTOCKS AND PERINEAL AREA. PATIENT WAS REPOSITIONED AND NEW SHEET WAS PLACED OVER PATIENT. PATIENT TOLERATED CHANGE WELL. WILL CONTINUE TO OBSERVE PATIENT.
[2023-02-02] MEDS: PIPERACILLIN/TAZOBACTAM 4.5 GM in DEXTROSE 5% 100 ML IV SCH ×4 (06:13→23:47)
[2023-02-02 06:17] LABS: BASOPHILS % (AUTO) 0.6 % (0.0-2.0); EOSINOPHILS # (AUTO) 0.6 K/uL (0-0.4); EOSINOPHILS % (AUTO) 8.5 % (0.0-4.0); HEMATOCRIT 28.3 % (36-52); HEMOGLOBIN 9.2 g/dL (12.0-18.0); LYMPHOCYTES # (AUTO) 1.4 K/uL (2.0-11.5); LYMPHOCYTES % (AUTO) 21.3 % (20.5-51.1); MEAN CORPUSCULAR HEMOGLOBIN 27 pg (27-31); MEAN CORPUSCULAR HGB CONC 32 g/dL (33-37); MEAN CORPUSCULAR VOLUME 81.6 fL (80-94); MONOCYTES # (AUTO) 0.4 K/uL (0.8-1.0); MONOCYTES % (AUTO) 6.2 % (1.7-9.3); NEUTROPHILS # (AUTO) 4.1 K/uL (1.8-7.7); NEUTROPHILS % (AUTO) 63.4 % (42.2-75.2); PLATELET COUNT (AUTO) 432 K/uL (140-450); RED BLOOD CELL COUNT(AUTO) 3.46 MIL/uL (4.20-6.10); RED CELL DISTRIBUTION WIDTH 16.7 % (11.6-13.7)
[2023-02-02 06:27] LABS: WHITE BLOOD COUNT (AUTO) 6.6 K/uL (4.8-10.8)
[2023-02-02 06:45] LABS: ANION GAP 13.1 (8-16); CARBON DIOXIDE 26.1 mmol/L (21-32); CREATININE 0.8 mg/dL (0.6-1.3); POTASSIUM 3.2 mmol/L (3.5-5.1)
--- NOTE | 2023-02-02 07:42 | NUR ---
RECEIVED PT ON ACVC 450,F16,+5,28%. VENT WHEELS ARE LOCKED, PLUGGED INTO RED OUTLET ALARMS ARE SET AND AUDIBLE TO THE NURSE STATION. AMBUBAG AT BEDSIDE. CPAP TRAIL STARTED 08/12. WITH BACK UP SETTING. CALL LIGHT WITHIN REACH OF PT. WILL CONTINUE TO MONITOR.
--- NOTE | 2023-02-02 07:48 | NUR ---
ENDORSED TO DAY SHIFT NURSE REGINA FOR CONTINUITY OF CARE. PATIENT IS STABLE.
--- NOTE | 2023-02-02 07:48 | NUR ---
RECEIVED PATIENT FROM PM NURSE FOR CONTINUATION OF CARE. PATIENT SEEN UNDERGOING BREATHING TREATMENT. PATIENT'S VITALS WITHIN BASELINE OF UNDERGOING PROCEDURE. WILL RECHECK AFTER BREATHING TREATMENT IS COMPLETED
[2023-02-02] MEDS: FAMOTIDINE 20 MG/2 ML VIAL IVP SCH ×2 (08:51→20:35)
[2023-02-02] MEDS: METOCLOPRAMIDE 10 MG/2 ML INJ VIAL IVP SCH ×3 (08:51→18:22)
[2023-02-02] MEDS: VALPROIC ACID 250 MG/5 ML UDC PO SCH ×3 (09:00→17:00)
--- NOTE | 2023-02-02 09:04 | NUR ---
CPAP TRIAL 08/12. PT LASTED 80 MINUTES BEFORE GOING APNEIC AND TRIGGERING FULL VENT SUPPORT OF ACVC 450, F16,+5,28%. WILL CONTINUE TO MONITOR.
[2023-02-02] MEDS ORDERED: KCL 20 MEQ IN 100 mL PREMIX 200 ML IV SCH (10:00)
[2023-02-02] MEDS: POTASSIUM CHL 20 MEQ/D5-1/2NS 1,000 ML IV SCH (12:36)
--- NOTE | 2023-02-02 16:01 | NUR ---
02/02/23 RD FOLLOW UP COMPLETED.PLEASE REFER TO NUTRITION ASSESSMENT UNDER CARE ACTIVITY FOR ESTIMATED NUTRITIONAL NEEDS. 1.RECOMMEND ONCE MEDICALLY APPROPRIATE TO START TUBE FEEDING OF VITAL A.F. AT 20 ML PER HOUR AND INCREASE BY 20ML Q4H RECOMMENDED BY RD 01/31/23. -GOAL RATE OF 60ML/HR WITH FWF OF 250ML Q6H. THIS WILL PROVIDE 1,728 CALORIES AND 105 GRAMS OF PROTEIN, MEETING AT LEAST 75% OF PATIENTS ESTIMATED NUTRITIONAL NEEDS. 2.MONITOR NPO STATUS, WEIGHT, GI ISSUES AND NUTRITION RELATED LAB VALUES. 3.RD TO FOLLOW-UP IN 2-3 DAYS PATIENT IS HIGH RISK. EDDIE RICARDO RD
--- NOTE | 2023-02-02 17:00 | NUR ---
OBTAINED CONSENT FROM PATIENT SPOUSE FOR SURGERY THROUGH TELEPHONE. CHARGE NURSE VERIFIED AND SIGNED SECONDARY WITNESS
[2023-02-02] MEDS ORDERED: POTASSIUM CHLORIDE 20% 40 MEQ/15 ML UDC GT SCH (18:15)
--- NOTE | 2023-02-02 19:39 | NUR ---
ENDORSED PATIENT TO PM NURSE FOR CONTINUATION OF CARE. PATIENT STABLE, NO KINKS IN TUBES HEART RATE BASELINE 100-110
[2023-02-03] VITALS (17 sets, daily range): BP systolic 124–155; BP diastolic 69–89; PULSE 77–145; RESP 16–28; TEMP 97.5–98.6; O2SAT 98–100
[2023-02-03] MEDS: Z-GUARD PASTE TP SCH ×2 (00:29→14:41)
[2023-02-03] MEDS: ALBUTEROL SULFATE/IPRATROPIU 3 ML SOL IH SCH ×4 (01:14→20:00)
[2023-02-03] MEDS: POTASSIUM CHL 20 MEQ/D5-1/2NS 1,000 ML IV SCH ×2 (02:06→17:17)
[2023-02-03] MEDS: PIPERACILLIN/TAZOBACTAM 4.5 GM in DEXTROSE 5% 100 ML IV SCH ×3 (05:28→17:14)
[2023-02-03 06:31] LABS: BASOPHILS % (AUTO) 0.6 % (0.0-2.0); EOSINOPHILS # (AUTO) 0.7 K/uL (0-0.4); EOSINOPHILS % (AUTO) 14.4 % (0.0-4.0); HEMATOCRIT 26.6 % (36-52); HEMOGLOBIN 8.5 g/dL (12.0-18.0); LYMPHOCYTES # (AUTO) 1.3 K/uL (2.0-11.5); LYMPHOCYTES % (AUTO) 25.8 % (20.5-51.1); MEAN CORPUSCULAR HEMOGLOBIN 26 pg (27-31); MEAN CORPUSCULAR HGB CONC 32 g/dL (33-37); MEAN CORPUSCULAR VOLUME 81.9 fL (80-94); MONOCYTES # (AUTO) 0.4 K/uL (0.8-1.0); MONOCYTES % (AUTO) 7.9 % (1.7-9.3); NEUTROPHILS # (AUTO) 2.5 K/uL (1.8-7.7); NEUTROPHILS % (AUTO) 51.3 % (42.2-75.2); PLATELET COUNT (AUTO) 399 K/uL (140-450); RED BLOOD CELL COUNT(AUTO) 3.24 MIL/uL (4.20-6.10); RED CELL DISTRIBUTION WIDTH 17.2 % (11.6-13.7); WHITE BLOOD COUNT (AUTO) 4.9 K/uL (4.8-10.8)
--- NOTE | 2023-02-03 06:51 | NUR ---
Receiced patient from previous shift, is awakes but does not follows simple command, on trach to ventilation A/C 16 450 .28 +5 peep. Patient saturated at 100%. Suctioned with clear thin mucous moderated amount. NPO for closure of old g-tube site and possible replace new site of g-tube. Continues on D5 1/2 NSS plus 20meq KCL. Has 1 bm and 900ml of urine output via nielson.
[2023-02-03 06:53] LABS: ANION GAP 11.4 (8-16); CARBON DIOXIDE 26.1 mmol/L (21-32); CREATININE 0.7 mg/dL (0.6-1.3); POTASSIUM 3.5 mmol/L (3.5-5.1)
--- NOTE | 2023-02-03 07:10 | NUR ---
RECEIVED PT ON CARESCAPE VENT, ACVC 450,F16, +5,28%. WHEELS LOCKED, PLUGGED INTO RED OUTLET, ALARMS ARE SET AND AUDIBLE TO THE NURSE STATION, AMBUBAG AT BEDSIDE. RHONCHI HEARD ON AUSCULTATION. SATURATION 100%. DRAIN SPONGE CHANGED. CPAP SCHEDULED FOR THIS MORNING. CALL LIGHT WITHIN REACH OF PT. WILL CONTINUE TO MONITOR PT THROUGHOUT SHIFT.
--- NOTE | 2023-02-03 07:33 | NUR ---
CPAP TRIAL 10/12. PT FAILED WITHIN 20 MINUTES DUE TO APNEA. PT CURRENTLY ON FULL VENT SUPPORT ACVC 450,f16,+5, 28%. WILL TRY AGAIN THIS AFTERNOON. WILL CONTINUE TO MONITOR.
--- NOTE | 2023-02-03 08:25 | NUR ---
RECEIVED REPORT FROM CHARGE NURSE FOR CONTINUITY OF CARE. PT STABLE AT THIS TIME.
[2023-02-03] MEDS: VALPROIC ACID 250 MG/5 ML UDC PO SCH ×3 (09:00→17:00)
[2023-02-03] MEDS ORDERED: KCL 20 MEQ IN 100 mL PREMIX 200 ML IV ONE (09:15)
[2023-02-03] MEDS ORDERED: fentaNYL citrate 0.05 MG/ML - 50mL vial IV ONE (10:00)
[2023-02-03] MEDS ORDERED: SEVOFLURANE 250 ML BTL INH ONE (10:00)
[2023-02-03] MEDS ORDERED: ROCURONIUM 50 MG/5 ML VIAL IV ONE (10:00)
[2023-02-03] MEDS ORDERED: LABETALOL 20 MG/4 ML VIAL IVP ONE ×2 (10:00→11:36)
[2023-02-03] MEDS ORDERED: MEPERIDINE 50 MG/ML SYR ONE ×2 (10:00→10:56)
[2023-02-03] MEDS ORDERED: BUPIVACAINE-MPF/EPI 0.25% 30 ML VIAL INJ ONE (10:05)
[2023-02-03] MEDS: FAMOTIDINE 20 MG/2 ML VIAL IVP SCH ×2 (10:13→22:48)
[2023-02-03] MEDS ORDERED: fentaNYL citrate 0.05 MG/ML VIAL ONE (10:13)
[2023-02-03] MEDS: METOCLOPRAMIDE 10 MG/2 ML INJ VIAL IVP SCH ×3 (10:13→17:16)
--- NOTE | 2023-02-03 10:24 | NUR ---
DID NOT GIVE PATIENT HIS HEPARIN BECAUSE HE IS HAVING SURGERY AND THE DEPAKENE BECAUSE HE HAS NO GTUBE TO ADMINISTER.
--- NOTE | 2023-02-03 10:25 | NUR ---
TRANSFERRED PT TO OR VIA BVM AT 15L. SATURATION 98%. NO DISTRESS NOTED. CARESCAPE VENT ON STAND BY.
--- NOTE | 2023-02-03 10:31 | NUR ---
Technology Recruiter PAY STATION COLLECTOR conducted a Discharge Planning Assessment last week. Refer to notes in assessment.
--- NOTE | 2023-02-03 12:25 | NUR ---
TRANSFERRED PT BACK FROM OR TO ROOM 108B VIA BVM 15L. PT CURRENTLY ON CARESCAPE VENT ACVC TV450,F16,+5, 28%. VENT PLUGGED INTO RED OUTLET, WHEELS ARE LOCKED, ALARMS ARE SET AND AUDIBLE,AMBU BAG AT BEDSIDE. CALL LIGHT WITHIN REACH OF PATIENT. WILL CONTINUE TO MONITOR.
[2023-02-03] MEDS ORDERED: MORPHINE SULFATE 4 MG/ML SYR IV PRN (12:30)
[2023-02-03] MEDS ORDERED: HYDROmorphone 1 MG/ML AMP IVP PRN (12:30)
[2023-02-03] MEDS ORDERED: ePHEDrine 50 MG/ML VIAL ONE (13:04)
--- NOTE | 2023-02-03 13:49 | NUR ---
02/03/23 RD FOLLOW UP COMPLETED PLEASE REFER TO NUTRITION ASSESSMENT UNDER CARE ACTIVITY FOR ESTIMATED NUTRITIONAL NEEDS. 1. RECOMMEND ONCE MEDICALLY APPROPRIATE TO START TUBE FEEDING OF VITAL A.F. AT 20 ML PER HOUR AND INCREASE BY 20ML Q4H RECOMMENDED BY RD 01/31/23. -GOAL RATE OF 60ML/HR WITH FWF OF 250ML Q6H. THIS WILL PROVIDE 1,728 CALORIES AND 105 GRAMS OF PROTEIN, MEETING AT LEAST 75% OF PATIENTS ESTIMATED NUTRITIONAL NEEDS. 2. RD WILL MONITOR TUBE FEEDING, WEIGHT, GI ISSUES AND NUTRITION RELATED LAB VALUES. 3. RD TO FOLLOW-UP 2-3 DAYS, HIGH RISK LEFTY HERNANDEZ RD
--- NOTE | 2023-02-03 14:41 | NUR ---
DC PLANNING A 62 YO MALE PATIENT ,A RESIDENT OF [facility] ADMITTED FOR SEPSIS AND PNEUMONITIS WITH HX OF CVA,DYSPHAGIA S/P G-TUBE, CHRONIC HYPOXIC RESPIRATORY FAILURE POST TRACH PRESENTING FROM FACILITY WITH ELEVATED HEART RATE. CXR SHOWS PATCHY BILATERAL OPACITIES WHICH MAY REPRESENT PNEUMONIA OR ATELECTASIS. S/P TAKEDOWN CLOSURE OF GASTROCUTANEOUS FISTULA AND NEW G-TUBE PLACEMENT.SPUTUM (+) FOR PSEUDOMONAS A . ON ZOSYN.PATIENT IS TRACH TO VENT.NEPHRO,ID ,PULMO, GI AND SURGERY ON BOARD.DC PLAN- BACK TO [facility] WHEN PATIENT CONDITION IMPROVES AND PATIENT RESPONDS TO TX.CM TO FOLLOW. Addendum: 02/05/23 at 1349 by KATHIE HERNANDEZ CM RECEIVED ORDER FOR PATIENT TO GO TO [facility]. FAXED ALL PAPERWORK TO [facility]. Addendum: 02/05/23 at 1619 by AVA VERGARA CM DC PLANNING PATIENT ON TRACH TO VENT ,NON VERBAL.WITH SURGICAL DRESSING ABDOMINAL WALL.WITH X1 LENNY BULB WITH VERY MINIMAL OUTPUT.G-TUBE TO DRAINAGE WITH BILIOUS SECRETIONS IN MODERATE AMOUNT. ORDER IN FOR [facility] EVALUATION.SPOKE TO MODESTO AT [facility] AND CONDITION REPORT PROVIDED.PATIENT ON ZOSYN.MIGHT NEED TPN PER SURGERY.CM TO FOLLOW. Addendum: 02/05/23 at 1650 by AVA VERGARA CM LATE ENTRY [facility] STILL REVIEWING PATIENTS CLINICALS.MODESTO KELLER CM WILL CALL BACK FOR UPDATE IN AM. Addendum: 02/06/23 at 1525 by Isabell Spaulding RN DC PLANNING: RECEIVED A CALL FROM [facility] HARMONY SALVADOR [phone] PROVIDE THE AUTH # FOR JOSÉ LUIS [id number] AND FOR TRANSPORT [id number]. CALLED CASSANDRA AT [facility] PROVID THE AUTH AND ARRANGED TRANSPORT WITH [facility] , PLACE IT WILL CALL. CM TO FOLLOW Addendum: 02/06/23 at 1624 by Isabell Spaulding RN DC PLANNING: CALLED PT'S [facility]AL [phone] LEFT A MESSAGE REGARDING TRANSFER TO [facility]. CM TO FOLLOW Addendum: 02/07/23 at 1221 by KATHIE HERNANDEZ CM RECEIVED ORDER FOR PATIENT TO GO BACK TO [facility] WITH IV ABX. FAXED ALL PAPERWORK TO [facility] AND [facility]. WITH FOLLOW UP WITH UPDATED Addendum: 02/07/23 at 1532 by AVA VERGARA DC PLANNING PATIENT WILL BE TRANSFERRED TO [facility] FOR FURTHER VENT SUPPORT,IV ABX,LENNY DRAINAGE MGT AND WOUND CARE. AT BEDSIDE AND AGREEABLE WITH TRANSFER TO [facility].MODESTO KELLER AT [facility] INFORMED.[facility] GOT THE AUTH.STILL ON WILL CALL LIST FOR [facility] TRANSPORT AUTH# [id number].WILL DC ONCE PATIENT TOLERATES G-TUBE FEEDING.CM TO FOLLOW. Addendum: 02/10/23 at 1043 by KATHIE HERNANDEZ PATIENT WAS ACCEPTED AT [facility] [place] [address] [facility] [id number]. PATIENT WILL BE GOING TO ROOM [address] MORENO. TRANSPORTATION ARRANGED WITH [facility] FOR A 1400 ACADEMY DIRECTOR TIME. NURSE CARLOS AWARE OF THE ABOVE INFORMATION WHO WILL BE INFORMING PATIENTS .
--- NOTE | 2023-02-03 14:48 | NUR ---
DID NOT GIVE DEPAKENE BECAUSE DID NOT GIVE ORDERS TO USE NEW G-TUBE
[2023-02-03] MEDS: LORazepam 2 MG/ML VIAL IVP PRN (17:15)
--- NOTE | 2023-02-03 18:00 | NUR ---
MESSAGED ABOUT PATIENTS HR BEING 136 AFETR GIVING ATIVAN. I ALSO ASKED IF WE COULD RENEW RESTRAINT ORDER.
--- NOTE | 2023-02-03 18:45 | NUR ---
RESENT DR FUENTES BECAUSE HE HAD NOT ANSWERED ME YET.
--- NOTE | 2023-02-03 19:54 | NUR ---
ENDORSED PT TO STRONG NITRIC OPERATOR NURSE FOR CONTINUITY OF CARE. PT STABLE AT THIS TIME.
[2023-02-03] MEDS: METOPROLOL 5 MG/5 ML VIAL IV PRN (23:05)
[2023-02-04] VITALS (16 sets, daily range): BP systolic 127–147; BP diastolic 75–99; PULSE 111–138; RESP 16–25; TEMP 98.3–99.5; O2SAT 9–100
[2023-02-04] MEDS: ALBUTEROL SULFATE/IPRATROPIU 3 ML SOL IH SCH ×5 (01:00→19:05)
[2023-02-04] MEDS: PIPERACILLIN/TAZOBACTAM 4.5 GM in DEXTROSE 5% 100 ML IV SCH ×5 (01:00→23:10)
--- NOTE | 2023-02-04 01:40 | NUR ---
0130 HHNTX WAS NOT GIVEN DUE TO ELEVATED HEART RATE. HR IS 131. PATIENT HAS CLEAR BS AND SHOWS NO SOB.CALL LIGHT WITHIN REACH
[2023-02-04] MEDS: Z-GUARD PASTE TP SCH ×2 (01:52→13:05)
[2023-02-04 06:41] LABS: ANION GAP 12.6 (8-16); CARBON DIOXIDE 26.4 mmol/L (21-32); CREATININE 0.7 mg/dL (0.6-1.3)
--- NOTE | 2023-02-04 07:14 | NUR ---
PT SCHEDULED TREATMENT WAS NOT GIVEN DUE TO PT HAVING A ELEVATED TN, RN NOTIFIED. NO DISTRESS OR SOB NOTED. PT HAS CLEAR BREATH SOUNDS. CALL LIGHT WITHIN REACH. WILL CONT TO MONITOR THROUGHOUT SHIFT
--- NOTE | 2023-02-04 07:15 | NUR ---
RECEIVED REPORT FROM COAL WASHER NURSE FOR CONTINUITY OF CARE. PT STABLE AT THIS TIME.
[2023-02-04 08:50] LABS: BILIRUBIN,URINE NEGATIVE (NEGATIVE); BLOOD, URINE 1+ (NEGATIVE); COLOR,URINE YELLOW (YELLOW); LEUKOCYTE ESTERASE ,URINE TRACE (NEGATIVE); NITRITE, URINE NEGATIVE (NEGATIVE); PH,URINE 6.5 (5.0-9.0); UGLUCOSE NEGATIVE (NEGATIVE)
[2023-02-04] MEDS ORDERED: METOPROLOL 5 MG/5 ML VIAL IV SCH (08:55)
[2023-02-04 08:56] LABS: APPEARANCE,URINE CLOUDY (CLEAR); CALCIUM OXALATE CRYSTALS,UR None Seen /HPF (None Seen); COARSE GRANULAR CASTS,URINE None Seen /LPF (None Seen); FINE GRANULAR CASTS,URINE None Seen /LPF (None Seen); HYALINE CASTS, URINE None Seen /LPF (None Seen); OTHER CRYSTALS,URINE None Seen /HPF (None Seen); RBC,URINE 0-5 /HPF (0-5); RED BLOOD CELL CASTS,URINE None Seen /LPF (None Seen); TRICHOMONAS,URINE None Seen /HPF (None Seen); TRIPLE PHOSPHATE CRYSTAL,UR None Seen /HPF (None Seen); URIC ACID CRYSTALS,URINE None Seen /HPF (None Seen); URINE AMORPHOUS URATE None Seen /HPF (None Seen); WAXY CASTS,URINE None Seen /LPF (None Seen); YEAST,URINE Many /HPF (None Seen)
[2023-02-04 08:57] LABS: OTHER CASTS, URINE None Seen /LPF (None Seen)
[2023-02-04] MEDS: VALPROIC ACID 250 MG/5 ML UDC PO SCH ×3 (09:00→18:19)
[2023-02-04] MEDS: METOCLOPRAMIDE 10 MG/2 ML INJ VIAL IVP SCH ×3 (09:21→18:20)
[2023-02-04] MEDS: METOPROLOL 5 MG/5 ML VIAL IV PRN (09:21)
[2023-02-04] MEDS: FAMOTIDINE 20 MG/2 ML VIAL IVP SCH ×2 (09:22→22:33)
[2023-02-04] MEDS: POTASSIUM CHL 20 MEQ/D5-1/2NS 1,000 ML IV SCH ×2 (09:24→22:31)
--- NOTE | 2023-02-04 09:41 | NUR ---
DID NOT GIVE DEPAKENE BECAUSE DID NOT GIVE ORDERS TO USE NEW G-TUBE
[2023-02-04] MEDS ORDERED: MAG SULF 2000 MG/WATER PREMIX 50 ML IV SCH (09:45)
[2023-02-04] MEDS ORDERED: MAG SULF 2000 MG/WATER PREMIX 50 ML IV ONE (09:55)
--- NOTE | 2023-02-04 13:06 | NUR ---
DID NOT GIVE DEPAKENE BECAUSE DID NOT GIVE ORDERS TO USE NEW G-TUBE
[2023-02-04 13:30] LABS: BASOPHILS # (AUTO) 0.1 K/uL (0.00-0.22); BASOPHILS % (AUTO) 0.6 % (0.0-2.0); EOSINOPHILS # (AUTO) 0.2 K/uL (0-0.4); EOSINOPHILS % (AUTO) 2.6 % (0.0-4.0); HEMATOCRIT 29.3 % (36-52); HEMOGLOBIN 9.4 g/dL (12.0-18.0); LYMPHOCYTES % (AUTO) 11.2 % (20.5-51.1); MEAN CORPUSCULAR HEMOGLOBIN 26 pg (27-31); MEAN CORPUSCULAR HGB CONC 32 g/dL (33-37); MEAN CORPUSCULAR VOLUME 82.2 fL (80-94); MONOCYTES # (AUTO) 0.6 K/uL (0.8-1.0); MONOCYTES % (AUTO) 6.9 % (1.7-9.3); NEUTROPHILS # (AUTO) 6.7 K/uL (1.8-7.7); NEUTROPHILS % (AUTO) 78.7 % (42.2-75.2); PLATELET COUNT (AUTO) 542 K/uL (140-450); RED BLOOD CELL COUNT(AUTO) 3.56 MIL/uL (4.20-6.10); RED CELL DISTRIBUTION WIDTH 17.5 % (11.6-13.7); WHITE BLOOD COUNT (AUTO) 8.5 K/uL (4.8-10.8)
--- NOTE | 2023-02-04 16:45 | NUR ---
DR HILLIARD STATED T WAS OKAY TO GIVE MEDICATION THROUGH G-TUBE.
--- NOTE | 2023-02-04 20:00 | NUR ---
HAND-OFF REPORT RECEIVED FROM SAGAR LANDRY FOR CONTINUITY OF CARE. ENDORSED: ARIANNA VALVE PLACED ON VASQUEZ BAG TO CONNECT TO GTUBE, PRN METROPOLOL GIVEN PRNX1 FOR HR 150'S AND EFFECTIVE. PT RECEIVED WITH NO CHANGES TO VENT TO TRACH SETTINGS. CONT TO MONITOR AND ASSIST NEEDED.
--- NOTE | 2023-02-04 20:09 | NUR ---
ENDORSED PT TO HUMAN RESOURCES VICE PRESIDENT NURSE FOR CONTINUITY OF CARE. PT STABLE AT THIS TIME.
[2023-02-05] VITALS (20 sets, daily range): BP systolic 139–147; BP diastolic 81–90; PULSE 109–145; RESP 14–29; TEMP 97.1–101.6; O2SAT 68–100
[2023-02-05] MEDS: Z-GUARD PASTE TP SCH ×2 (01:00→13:14)
[2023-02-05] MEDS: ALBUTEROL SULFATE/IPRATROPIU 3 ML SOL IH SCH ×4 (01:29→19:51)
[2023-02-05] MEDS: PIPERACILLIN/TAZOBACTAM 4.5 GM in DEXTROSE 5% 100 ML IV SCH ×4 (06:00→23:58)
--- NOTE | 2023-02-05 06:00 | NUR ---
DRESSING CHANGED. OBSERVABLE HEALING TO SITE A WHOLE COMPARED TO 24 HOURS PRIOR. WASHED ENTIRE SITE WITH WOUND CLEANSER, RINSED WITH NS, PATTED DRY, PACKED PUNCTURE SITE WITH GAUZE, LIGHTLY WRAPPED DRAIN BASE WITH GAUZE THEN COVERED EACH WITH 4X4 FOR DRAINS, LOOSELY COVERED EVERYTHING WITH ABD PADS AND WIDE TAPE.
[2023-02-05 06:58] LABS: ANION GAP 13.1 (8-16); CARBON DIOXIDE 24.9 mmol/L (21-32); CREATININE 0.7 mg/dL (0.6-1.3)
--- NOTE | 2023-02-05 07:09 | NUR ---
receive the patinet from the night coordinator chelsy Duncan aox1 lethargic in rm 108B admitting diagnosis sepsis , infected gastric tube on trache to vent . on gastric tube tube connected to nielson catheter for drainage .will continue to monitor
[2023-02-05 07:13] LABS: BASOPHILS % (AUTO) 0.6 % (0.0-2.0); EOSINOPHILS # (AUTO) 0.3 K/uL (0-0.4); EOSINOPHILS % (AUTO) 3.8 % (0.0-4.0); HEMOGLOBIN 9.1 g/dL (12.0-18.0); LYMPHOCYTES # (AUTO) 1.2 K/uL (2.0-11.5); LYMPHOCYTES % (AUTO) 15.7 % (20.5-51.1); MEAN CORPUSCULAR HEMOGLOBIN 27 pg (27-31); MEAN CORPUSCULAR HGB CONC 33 g/dL (33-37); MONOCYTES # (AUTO) 0.7 K/uL (0.8-1.0); MONOCYTES % (AUTO) 8.7 % (1.7-9.3); NEUTROPHILS # (AUTO) 5.6 K/uL (1.8-7.7); NEUTROPHILS % (AUTO) 71.2 % (42.2-75.2); PLATELET COUNT (AUTO) 503 K/uL (140-450); RED BLOOD CELL COUNT(AUTO) 3.42 MIL/uL (4.20-6.10); RED CELL DISTRIBUTION WIDTH 17.1 % (11.6-13.7); WHITE BLOOD COUNT (AUTO) 7.9 K/uL (4.8-10.8)
--- NOTE | 2023-02-05 07:15 | NUR ---
RECEIVED ON ACVC 450,f16, +5,28%. VENT WHEELS ARE LOCKED, PLUGGED INTO RED OUTLET, ALARMS ARE SET AND AUDIBLE TO THE NURSE STATION, AMBUBAG AT BEDSIDE. CLEAR BREATH SOUNDS, NO DISTRESS, SATURATION 99%. MINIMAL SECRETIONS SUCTIONED. PT HAS BEEN ON CURRENT VENT SETTING SINCE 02/01/23. ABG ORDERED FOR 0930. 0750 SIMV-VC 12/5, F16, 28% STARTED. BACK UP VENT SETTING ARE ON. CALL LIGHT WITHIN REACH OF PATIENT. WILL CONTINUE TO MONITOR.
--- NOTE | 2023-02-05 07:30 | NUR ---
HAND-OFF REPORT TO ONCOMING NURSE HANSON FOR CONTINUITY OF CARE WITH BEDSIDE ROUNDS. RELINQUISHED CARE OF PT AT THIS TIME..
[2023-02-05] MEDS: VALPROIC ACID 250 MG/5 ML UDC PO SCH ×3 (09:17→18:14)
[2023-02-05] MEDS: FAMOTIDINE 20 MG/2 ML VIAL IVP SCH ×2 (09:18→20:42)
[2023-02-05] MEDS: METOCLOPRAMIDE 10 MG/2 ML INJ VIAL IVP SCH ×3 (09:18→18:14)
--- NOTE | 2023-02-05 09:21 | NUR ---
WOUND CARE RE-EVALUATION NOTE: S/P EX-LAP, CLOSURE GASTROCUTANEOUS FISTULA, WEDGE RESECTION STOMACH, NEW G TUBE PLACEMENT, LENNY DRAIN PLACEMENT BY DR. HILLIARD. RLQ ABD LENNY DRAIN SECURE. LUQ ABD GT IN PLACE, NO LEAKAGE. ABDOMINAL WALL MASD IMPROVING WITH Z GUARD, MID ABDOMINAL SURGICAL WOUND HERIBERTO 9.5CM IN LENGTH, SECURED AND NO S/S OF WOUND DEHISCENCE, NO ODOR. THERE IS A PACKED GAUZE IN BETWEEN HERIBERTO. INFORM DR. HILLIARD AND PENDING ORDER. POC DISCUSSED WITH PRIMARY RN TODD. RECOMMENDATIONS -CLEANSE ABDOMINAL SURGICAL SITES WITH NS. PAT DRY APPLY Z GUARD TO ABDOMINAL WALL MASD SKIN AND DRY DRESSING TO MID ABDOMINAL WOUND BID. APPLY SPLIT SPONGE TO LENNY SITE AND GT SITE BID AND PRN IF SOILING.
--- NOTE | 2023-02-05 09:34 | NUR ---
PT CONTINUES ON SIMV-VC 07/01, F16 SINCE 0750. VOLUMES BETWEEN 450-552. SPONTANEOUS RESPIRATORY RATE IS 9 ABOVE THE SET RATE OF 16. WILL CONTINUE TO MONITOR.
--- NOTE | 2023-02-05 10:05 | NUR ---
ABG DRAWN PH 7.475, CO2 29.7, PO2 101.0, HCO3 21.4. 02SAT 98.0. ACVC SETTING 450, F16, +5,28%. LOWERED F FROM 16 TO 14 AND FIO2 FROM 28%TO 26%. NO DISTRESS NOTED, NO SOB, SATURATION 98%. PT RESPONDING WELL TO THE CHANGE OF FREQUENCY. VOLUMES ARE BETWEEN 460-600. CLEAR BREATH SOUNDS. WILL CONTINUE TO MONITOR. CALL LIGHT WITHIN REACH OF PATIENT.
--- NOTE | 2023-02-05 11:15 | NUR ---
insert intravenous line on left wrsit gauge 22 . intact and patent
[2023-02-05] MEDS ORDERED: MAG SULF 2000 MG/WATER PREMIX 50 ML IV SCH (11:30)
[2023-02-05] MEDS: POTASSIUM CHL 20 MEQ/D5-1/2NS 1,000 ML IV SCH (13:10)
[2023-02-05] MEDS: GAUZE TP SCH (13:15)
[2023-02-05] MEDS: METOPROLOL 5 MG/5 ML VIAL IV PRN (15:04)
--- NOTE | 2023-02-05 15:14 | NUR ---
02/05/23 RD FOLLOW UP COMPLETED PLEASE REFER TO NUTRITION ASSESSMENT UNDER CARE ACTIVITY FOR ESTIMATED NUTRITIONAL NEEDS. 1. RECOMMEND ONCE MEDICALLY APPROPRIATE TO START TUBE FEEDING OF VITAL A.F.AT 20 ML PER HOUR AND INCREASE BY 20ML Q4H -GOAL RATE OF 60ML/HR WITH FWF OF 250ML Q6H. THIS WILL PROVIDE 1,728 CALORIES AND 105 GRAMS OF PROTEIN, MEETING AT LEAST 75% OF PATIENTS ESTIMATED NUTRITIONAL NEEDS. 2. RD WILL MONITOR TUBE FEEDING, WEIGHT, GI ISSUES AND NUTRITION RELATED LAB VALUES. 3. RD TO FOLLOW-UP 2-3 DAYS, HIGH RISK LEFTY HERNANDEZ RD
[2023-02-05] MEDS ORDERED: GAUZE TP SCH (16:00)
--- NOTE | 2023-02-05 19:28 | NUR ---
will endorse to awake overnight monitor chelsy Sherman for continuity of care . still soft wrist restraints . will continue to monitor heart rate , temperature for sepsis . gastric tube feeding will start soon .
--- NOTE | 2023-02-05 20:42 | NUR ---
DUE MEDS GIVEN ORDERED.
[2023-02-05] MEDS ORDERED: VANCOMYCIN PER PHARMACY MC PRN (22:55)
[2023-02-06] VITALS (14 sets, daily range): BP systolic 124–152; BP diastolic 72–177; PULSE 104–126; RESP 14–28; TEMP 96–99.3; O2SAT 96–100
[2023-02-06] MEDS ORDERED: VANCOMYCIN 500 MG VIAL ONE (00:10)
[2023-02-06] MEDS ORDERED: VANCOMYCIN 1,500 MG in DEXTROSE 5% 500 ML IV ONE (00:30)
[2023-02-06] MEDS: GAUZE TP SCH ×2 (01:00→13:00)
[2023-02-06] MEDS: Z-GUARD PASTE TP SCH ×2 (01:00→13:00)
[2023-02-06] MEDS: POTASSIUM CHL 20 MEQ/D5-1/2NS 1,000 ML IV SCH ×3 (01:22→23:22)
[2023-02-06] MEDS: ALBUTEROL SULFATE/IPRATROPIU 3 ML SOL IH SCH ×4 (01:40→19:23)
--- NOTE | 2023-02-06 02:15 | NUR ---
URINE COLLECTED FOR URINE CULTURE SENT TO LAB.
[2023-02-06] MEDS: PIPERACILLIN/TAZOBACTAM 4.5 GM in DEXTROSE 5% 100 ML IV SCH ×4 (06:14→23:22)
[2023-02-06 06:44] LABS: ANION GAP 16.2 (8-16); CARBON DIOXIDE 21.4 mmol/L (21-32); CREATININE 0.7 mg/dL (0.6-1.3); POTASSIUM 3.6 mmol/L (3.5-5.1)
[2023-02-06 06:51] LABS: BASOPHILS # (AUTO) 0.1 K/uL (0.00-0.22); BASOPHILS % (AUTO) 0.6 % (0.0-2.0); EOSINOPHILS # (AUTO) 0.7 K/uL (0-0.4); EOSINOPHILS % (AUTO) 6.9 % (0.0-4.0); HEMATOCRIT 29.1 % (36-52); HEMOGLOBIN 9.4 g/dL (12.0-18.0); LYMPHOCYTES # (AUTO) 2.2 K/uL (2.0-11.5); LYMPHOCYTES % (AUTO) 20.7 % (20.5-51.1); MEAN CORPUSCULAR HEMOGLOBIN 27 pg (27-31); MEAN CORPUSCULAR HGB CONC 33 g/dL (33-37); MEAN CORPUSCULAR VOLUME 81.5 fL (80-94); MONOCYTES # (AUTO) 0.9 K/uL (0.8-1.0); MONOCYTES % (AUTO) 8.4 % (1.7-9.3); NEUTROPHILS # (AUTO) 6.7 K/uL (1.8-7.7); NEUTROPHILS % (AUTO) 63.4 % (42.2-75.2); PLATELET COUNT (AUTO) 593 K/uL (140-450); RED BLOOD CELL COUNT(AUTO) 3.57 MIL/uL (4.20-6.10); RED CELL DISTRIBUTION WIDTH 17.2 % (11.6-13.7); WHITE BLOOD COUNT (AUTO) 10.6 K/uL (4.8-10.8)
--- NOTE | 2023-02-06 07:20 | NUR ---
RECEIVED REPORT FROM NURSE FOR CONTINUITY OF CARE
--- NOTE | 2023-02-06 07:28 | NUR ---
GAVE REPORT TO AM NURSE REGINA FOR CONTINUITY OF CARE. PATIENT IS AFEBRILE.
[2023-02-06] MEDS ORDERED: MAG SULF 2000 MG/WATER PREMIX 50 ML IV SCH ×2 (08:30→10:10)
[2023-02-06] MEDS: VALPROIC ACID 250 MG/5 ML UDC PO SCH ×3 (09:00→17:00)
[2023-02-06] MEDS: FAMOTIDINE 20 MG/2 ML VIAL IVP SCH ×2 (09:07→20:12)
[2023-02-06] MEDS: METOCLOPRAMIDE 10 MG/2 ML INJ VIAL IVP SCH ×3 (09:07→18:06)
[2023-02-06] MEDS ORDERED: POTASSIUM CHLORIDE 20% 40 MEQ/15 ML UDC GT SCH (10:15)
--- NOTE | 2023-02-06 12:00 | NUR ---
PATIENT VENT REPORTS HIGH PRESSURE INTERMITTANTLY. PERFORMED SUCTIONING. PATIENT VITALS STABLE AT BASELINE 110-120 HEART RATE. PATIENT TURNED AND CLEANED.
[2023-02-06] MEDS: MORPHINE SULFATE 2 MG/ML SYR IVP PRN ×2 (14:36→23:27)
[2023-02-06] MEDS: VANCOMYCIN 1,000 MG in DEXTROSE 5% 250 ML IV SCH (18:42)
--- NOTE | 2023-02-06 19:20 | NUR ---
ENDORSED PATIENT TO PM NURSE FOR CONTINUITY OF CARE
--- NOTE | 2023-02-06 19:30 | NUR ---
RECEIVED PT FROM DAY RN FOR CONTINUITY OF CARE.PT IN BED ASLEEP.ON TRACH TO VENT, BREATHING EVEN AND UNLABORED. NO S/SX OF PAIN NOR DISCOMFORT. NO ACUTE RESPIRATORY DISTRESS. G-TUBE DRAIN BY GRAVITY.VASQUEZ CATHETER DRAINING CLEAR, YELLOW URINE. SKIN WARM AND DRY TO TOUCH. IVF INFUSING WELL ORDERED. BED IN THE LOWEST AND LOCKED POSITION FOR SAFETY, CALL LIGHT PLACED WITHIN REACH.
--- NOTE | 2023-02-06 20:18 | NUR ---
SCHEDULED MEDICATIONS GIVEN. PT TOLERATED WELL. WILL CONTINUE TO MONITOR.
--- NOTE | 2023-02-06 23:47 | NUR ---
SCHEDULED MEDICATION GIVEN. VITAL SIGNS ARE STABLE. NO ACUTE DISTRESS NOTED. ALL PRECAUTIONS IN PLACE. CALL LIGHT WITHIN REACH. WILL CONTINUE TO MONITOR.
[2023-02-07] VITALS (14 sets, daily range): BP systolic 144–157; BP diastolic 75–94; PULSE 99–131; RESP 18–26; TEMP 97.7–98.5; O2SAT 98–100
[2023-02-07] MEDS: ALBUTEROL SULFATE/IPRATROPIU 3 ML SOL IH SCH ×4 (01:03→19:14)
[2023-02-07] MEDS: Z-GUARD PASTE TP SCH ×2 (01:29→13:00)
[2023-02-07] MEDS: GAUZE TP SCH ×2 (01:29→13:00)
--- NOTE | 2023-02-07 04:00 | NUR ---
PT ASLEEP. NO S/SX OF DISTRESS. VITAL SIGNS STABLE. ALL PRECAUTIONS IN PLACE. CALL LIGHT WITHIN REACH. WILL CONTINUE TO MONITOR.
[2023-02-07] MEDS: PIPERACILLIN/TAZOBACTAM 4.5 GM in DEXTROSE 5% 100 ML IV SCH ×3 (05:08→19:22)
--- NOTE | 2023-02-07 05:30 | NUR ---
SCHEDULED MEDICATIONS GIVEN. PT TOLERATED WELL.ALL PRECAUTIONS IN PLACE. CALL LIGHT WITHIN REACH. WILL CONTINUE TO MONITOR.
[2023-02-07] MEDS: VANCOMYCIN 1,000 MG in DEXTROSE 5% 250 ML IV SCH (05:55)
--- NOTE | 2023-02-07 06:37 | NUR ---
PT IS STABLE. NO ACUTE EVENTS THROUGHOUT THE NIGHT. ALL NEEDS MET.NO S/SX OF DISTRESS. NO COMPLAINS OF PAIN AT THIS MOMENT. ALL PRECAUTIONS IN PLACE. CALL LIGHT WITHIN REACH. WILL ENDORSE TO DAY SHIFT NURSE.
[2023-02-07 06:41] LABS: BASOPHILS % (AUTO) 0.6 % (0.0-2.0); EOSINOPHILS # (AUTO) 0.6 K/uL (0-0.4); EOSINOPHILS % (AUTO) 8.3 % (0.0-4.0); HEMATOCRIT 26.3 % (36-52); HEMOGLOBIN 8.6 g/dL (12.0-18.0); LYMPHOCYTES # (AUTO) 1.3 K/uL (2.0-11.5); LYMPHOCYTES % (AUTO) 17.3 % (20.5-51.1); MEAN CORPUSCULAR HEMOGLOBIN 27 pg (27-31); MEAN CORPUSCULAR HGB CONC 33 g/dL (33-37); MEAN CORPUSCULAR VOLUME 81.5 fL (80-94); MONOCYTES # (AUTO) 0.6 K/uL (0.8-1.0); MONOCYTES % (AUTO) 7.6 % (1.7-9.3); NEUTROPHILS # (AUTO) 4.8 K/uL (1.8-7.7); NEUTROPHILS % (AUTO) 66.2 % (42.2-75.2); PLATELET COUNT (AUTO) 555 K/uL (140-450); RED BLOOD CELL COUNT(AUTO) 3.23 MIL/uL (4.20-6.10); RED CELL DISTRIBUTION WIDTH 16.7 % (11.6-13.7); WHITE BLOOD COUNT (AUTO) 7.3 K/uL (4.8-10.8)
[2023-02-07 07:08] LABS: ANION GAP 16.9 (8-16); CARBON DIOXIDE 19.7 mmol/L (21-32); CREATININE 0.7 mg/dL (0.6-1.3); POTASSIUM 3.6 mmol/L (3.5-5.1)
--- NOTE | 2023-02-07 07:20 | NUR ---
RECEIVED PATIENT FROM NURSE FRO CONTINUITY OF CARE. PATIENT SEEN ON BED, VITALS STABLE. ALL DRAINS EMPTIED.
[2023-02-07] MEDS: VALPROIC ACID 250 MG/5 ML UDC PO SCH ×3 (09:00→17:00)
[2023-02-07] MEDS: FAMOTIDINE 20 MG/2 ML VIAL IVP SCH ×2 (09:47→22:09)
[2023-02-07] MEDS: METOCLOPRAMIDE 10 MG/2 ML INJ VIAL IVP SCH ×3 (09:47→19:32)
[2023-02-07] MEDS ORDERED: Gauze TP (11:45)
[2023-02-07] MEDS ORDERED: ZGUARD TP (11:45)
[2023-02-07] MEDS ORDERED: ALBU3SOL83 IH (11:45)
[2023-02-07] MEDS ORDERED: ZOS3.375PM IV (11:45)
[2023-02-07] MEDS ORDERED: ACET-10509 PO (11:46)
[2023-02-07] MEDS ORDERED: POTASSIUM CHLORIDE 20% 40 MEQ/15 ML UDC GT SCH (13:52)
[2023-02-07] MEDS ORDERED: MAG SULF 2000 MG/WATER PREMIX 50 ML IV ONE ×2 (13:53→18:10)
[2023-02-07] MEDS: METOPROLOL 25 MG TAB GT SCH ×2 (14:20→21:46)
[2023-02-07] MEDS: POTASSIUM CHL 20 MEQ/D5-1/2NS 1,000 ML IV SCH (15:31)
--- NOTE | 2023-02-07 19:30 | NUR ---
RECEIVED PT FROM DAY RN FOR CONTINUITY OF CARE.PT IN BED ASLEEP.ON TRACH TO VENT, BREATHING EVEN AND UNLABORED. NO S/SX OF PAIN NOR DISCOMFORT. NO ACUTE RESPIRATORY DISTRESS.G TUBE OKAY .VASQUEZ CATHETER DRAINING CLEAR, YELLOW URINE. SKIN WARM AND DRY TO TOUCH. IVF INFUSING WELL ORDERED. BED IN THE LOWEST AND LOCKED POSITION FOR SAFETY, CALL LIGHT PLACED WITHIN REACH.
--- NOTE | 2023-02-07 21:00 | NUR ---
SCHEDULED MEDICATIONS GIVEN. PT TOLERATED WELL. WILL CONTINUE TO MONITOR.
[2023-02-07] MEDS: FLUCONAZOLE 100 MG TAB GT SCH (21:45)
[2023-02-07] MEDS ORDERED: POTASSIUM CHLORIDE 20% 40 MEQ/15 ML UDC ONE (21:45)
--- NOTE | 2023-02-07 23:30 | NUR ---
PT VOMITED TWICE BEFORE START OF TUBE FEEDING. NOTIFIED , ORDERED TO STOP FEEDING AND REASSESS IN THE MORNING.
--- NOTE | 2023-02-07 23:42 | NUR ---
2340 PATIENT VOMITED ON TRACH SITE. TRACH CARE WAS DONE AND PATIENT IS CLEAN AND EQUIPMENT REPLACED
[2023-02-08] VITALS (14 sets, daily range): BP systolic 121–149; BP diastolic 74–90; PULSE 92–151; RESP 14–18; TEMP 97.1–98.3; O2SAT 99–100
[2023-02-08] MEDS: PIPERACILLIN/TAZOBACTAM 4.5 GM in DEXTROSE 5% 100 ML IV SCH ×4 (00:08→17:19)
[2023-02-08] MEDS: ALBUTEROL SULFATE/IPRATROPIU 3 ML SOL IH SCH ×4 (01:00→19:22)
[2023-02-08] MEDS: Z-GUARD PASTE TP SCH ×2 (01:18→13:25)
[2023-02-08] MEDS: GAUZE TP SCH ×2 (01:18→13:21)
--- NOTE | 2023-02-08 02:20 | NUR ---
0210 PATIENT VOMITED AGAIN. TRACH CARE DONE. HHNTX NOT GIVEN DUE TO HIGH HR. 151 AND PATIENT VOMITTING
--- NOTE | 2023-02-08 03:41 | NUR ---
PT ASLEEP. NO S/SX OF DISTRESS. VITAL SIGNS STABLE. ALL PRECAUTIONS IN PLACE. CALL LIGHT WITHIN REACH. WILL CONTINUE TO MONITOR.
--- NOTE | 2023-02-08 06:30 | NUR ---
PT VOMITED AGAIN. CONNECTED G TUBE TO DRAIN BY GRAVITY. 1000ML GREEN BILIOUS OUTPUT. NOTIFIED .
--- NOTE | 2023-02-08 07:05 | NUR ---
RECEIVED REPORT FROM POWDER BLENDER NURSE FOR CONTINUITY OF CARE. PT STABLE AT THIS TIME.
[2023-02-08 07:25] LABS: BASOPHILS # (AUTO) 0.1 K/uL (0.00-0.22); BASOPHILS % (AUTO) 0.6 % (0.0-2.0); EOSINOPHILS # (AUTO) 0.1 K/uL (0-0.4); EOSINOPHILS % (AUTO) 1.3 % (0.0-4.0); HEMATOCRIT 28.4 % (36-52); HEMOGLOBIN 9.4 g/dL (12.0-18.0); LYMPHOCYTES # (AUTO) 1.1 K/uL (2.0-11.5); LYMPHOCYTES % (AUTO) 12.9 % (20.5-51.1); MEAN CORPUSCULAR HEMOGLOBIN 27 pg (27-31); MEAN CORPUSCULAR HGB CONC 33 g/dL (33-37); MEAN CORPUSCULAR VOLUME 80.2 fL (80-94); MONOCYTES # (AUTO) 0.6 K/uL (0.8-1.0); MONOCYTES % (AUTO) 6.5 % (1.7-9.3); NEUTROPHILS # (AUTO) 6.9 K/uL (1.8-7.7); NEUTROPHILS % (AUTO) 78.7 % (42.2-75.2); PLATELET COUNT (AUTO) 660 K/uL (140-450); RED BLOOD CELL COUNT(AUTO) 3.54 MIL/uL (4.20-6.10); RED CELL DISTRIBUTION WIDTH 16.7 % (11.6-13.7); WHITE BLOOD COUNT (AUTO) 8.8 K/uL (4.8-10.8)
[2023-02-08] MEDS: POTASSIUM CHL 20 MEQ/D5-1/2NS 1,000 ML IV SCH (07:40)
[2023-02-08 07:41] LABS: ANION GAP 15.3 (8-16); CARBON DIOXIDE 20.2 mmol/L (21-32); CREATININE 0.9 mg/dL (0.6-1.3); POTASSIUM 3.5 mmol/L (3.5-5.1)
[2023-02-08] MEDS: METOPROLOL 25 MG TAB GT SCH ×2 (09:48→21:08)
[2023-02-08] MEDS: FAMOTIDINE 20 MG/2 ML VIAL IVP SCH ×2 (09:51→21:20)
[2023-02-08] MEDS: VALPROIC ACID 250 MG/5 ML UDC PO SCH ×3 (09:51→17:19)
[2023-02-08] MEDS: METOCLOPRAMIDE 10 MG/2 ML INJ VIAL IVP SCH ×3 (09:51→17:19)
[2023-02-08] MEDS: VANCOMYCIN 500 MG in NACL 0.9% 100 ML IV SCH ×2 (11:22→23:02)
--- NOTE | 2023-02-08 14:58 | NUR ---
PT S JUST INFORMED ME THAT SHE DOES NOT WANT US TO GIVE HIM AND PAIN MEDICATION EXCEPT TYLENOL BECAUSE PT HAS ENOUGH BRAIN DAMAGE.
--- NOTE | 2023-02-08 19:30 | NUR ---
ENDORSED PT TO IT TEACHER NURSE FOR CONTINUITY OF CARE. PT STABLE AT THIS TIME.
--- NOTE | 2023-02-08 19:35 | NUR ---
RECEIVED PT FROM AM NURSE FOR CONTINUITY OF CARE.PT IS STABLE
[2023-02-08] MEDS: FLUCONAZOLE 100 MG TAB GT SCH (21:08)
[2023-02-09] VITALS (16 sets, daily range): BP systolic 127–150; BP diastolic 65–85; PULSE 67–112; RESP 18–29; TEMP 97.1–98.5; O2SAT 100
[2023-02-09] MEDS: POTASSIUM CHL 20 MEQ/D5-1/2NS 1,000 ML IV SCH ×2 (00:35→15:29)
[2023-02-09] MEDS: Z-GUARD PASTE TP SCH ×2 (01:00→13:56)
[2023-02-09] MEDS: GAUZE TP SCH ×2 (01:04→13:56)
[2023-02-09] MEDS: ALBUTEROL SULFATE/IPRATROPIU 3 ML SOL IH SCH ×4 (01:35→18:55)
[2023-02-09] MEDS ORDERED: MEROPENEM 1,000 MG VIAL IV ONE (05:05)
[2023-02-09] MEDS: MEROPENEM 1,000 MG in NACL 0.9% 50 ML IV SCH ×3 (05:17→20:52)
[2023-02-09 06:52] LABS: BASOPHILS # (AUTO) 0.1 K/uL (0.00-0.22); BASOPHILS % (AUTO) 0.9 % (0.0-2.0); EOSINOPHILS # (AUTO) 0.5 K/uL (0-0.4); EOSINOPHILS % (AUTO) 7.5 % (0.0-4.0); HEMATOCRIT 25.7 % (36-52); HEMOGLOBIN 8.5 g/dL (12.0-18.0); LYMPHOCYTES # (AUTO) 1.6 K/uL (2.0-11.5); LYMPHOCYTES % (AUTO) 22.3 % (20.5-51.1); MEAN CORPUSCULAR HEMOGLOBIN 27 pg (27-31); MEAN CORPUSCULAR HGB CONC 33 g/dL (33-37); MEAN CORPUSCULAR VOLUME 80.3 fL (80-94); MONOCYTES # (AUTO) 0.5 K/uL (0.8-1.0); MONOCYTES % (AUTO) 6.6 % (1.7-9.3); NEUTROPHILS # (AUTO) 4.4 K/uL (1.8-7.7); NEUTROPHILS % (AUTO) 62.7 % (42.2-75.2); PLATELET COUNT (AUTO) 662 K/uL (140-450); RED CELL DISTRIBUTION WIDTH 16.9 % (11.6-13.7); WHITE BLOOD COUNT (AUTO) 7.1 K/uL (4.8-10.8)
[2023-02-09 06:58] LABS: ANION GAP 15.4 (8-16); CARBON DIOXIDE 18.9 mmol/L (21-32); CREATININE 0.9 mg/dL (0.6-1.3); POTASSIUM 3.3 mmol/L (3.5-5.1)
--- NOTE | 2023-02-09 07:05 | NUR ---
RECEIVED REPORT FROM BAG MACHINE ADJUSTER NURSE FOR CONTINUITY OF CARE. PT STABLE AT THIS TIME.
--- NOTE | 2023-02-09 07:22 | NUR ---
ENDORSED PT TO AM NURSE FOR CONTINUITY OF CARE. PT IS STABLE
--- NOTE | 2023-02-09 09:13 | NUR ---
JOSÉ LUIS CALLED TO GET UPDATES ON PATIENT CARE TO SEE IF THEY COULD GET HIM PLACED TODAY.
[2023-02-09] MEDS ORDERED: KCL 20 MEQ IN 100 mL PREMIX 200 ML IV ONE (09:26)
[2023-02-09] MEDS: VALPROIC ACID 250 MG/5 ML UDC PO SCH ×3 (09:49→17:03)
[2023-02-09] MEDS: METOCLOPRAMIDE 10 MG/2 ML INJ VIAL IVP SCH ×3 (09:50→17:04)
[2023-02-09] MEDS: METOPROLOL 25 MG TAB GT SCH ×2 (09:50→20:51)
[2023-02-09] MEDS: FAMOTIDINE 20 MG/2 ML VIAL IVP SCH ×2 (09:50→20:51)
--- NOTE | 2023-02-09 10:15 | NUR ---
STARTED PT TUBE FEEDING AT 10ML/HR.
--- NOTE | 2023-02-09 12:30 | NUR ---
CHECKED PTS RESIDUAL AND THERE WAS NONE, INCREASED FEED TO 20 ML/HR.
--- NOTE | 2023-02-09 16:30 | NUR ---
CHECKED PTS RESIDUAL AND THERE WAS 5CC, INCREASED FEED TO 40 ML/HR.
--- NOTE | 2023-02-09 17:29 | NUR ---
02/09/23 RD FOLLOW UP COMPLETED. PLEASE REFER TO NUTRITION ASSESSMENT UNDER CARE ACTIVITY FOR ESTIMATED NUTRITIONAL NEEDS. 1.RECOMMEND INCREASING VITAL AF 1.2 ANUEL TO GOAL RATE OF 60 ML/HR; INCREASE BY 10 ML Q2H UNTIL GOAL RATE IS REACHED PT TOLERATES. -FWF 50 CC Q6H OR PER MD. THIS WILL PROVIDE 1728 KCAL, 108 GRAMS OF PROTEIN, MEETING AT LEAST 75% OF PTS ESTIMATED ENERGY NEEDS. 2. MONITOR TUBE FEEDING, WEIGHT, GI ISSUES AND NUTRITION RELATED LAB VALUES. 3. RD TO FOLLOW-UP IN 2-3 DAYS PATIENT IS HIGH RISK. EDDIE RICARDO RD
--- NOTE | 2023-02-09 18:27 | NUR ---
CHECKED PTS RESIDUAL AND THERE WAS 5CC, INCREASED FEED TO 30 ML/HR. Addendum: 02/09/23 at 1925 by Nicki Collado RN IT WAS 50ML/HR
--- NOTE | 2023-02-09 19:26 | NUR ---
ENDORSED PT TO DOCTOR OF RADIOLOGY NURSE FOR CONTINUITY OF CARE. PT STABLE AT THIS TIME.
--- NOTE | 2023-02-09 19:30 | NUR ---
RECEIVED PATIENT FROM AM NURSE FOR CONTINUITY OF CARE. PT IS STABLE
[2023-02-09] MEDS: FLUCONAZOLE 100 MG TAB GT SCH (20:50)
[2023-02-10] VITALS (10 sets, daily range): BP systolic 124–143; BP diastolic 7–69; PULSE 74–101; RESP 16–28; TEMP 97.9–98.5; O2SAT 100
[2023-02-10] MEDS: GAUZE TP SCH ×2 (01:02→12:53)
[2023-02-10] MEDS: Z-GUARD PASTE TP SCH ×2 (01:03→12:52)
[2023-02-10] MEDS: ALBUTEROL SULFATE/IPRATROPIU 3 ML SOL IH SCH ×3 (02:35→13:30)
[2023-02-10] MEDS: MEROPENEM 1,000 MG in NACL 0.9% 50 ML IV SCH ×2 (05:04→12:53)
[2023-02-10 06:05] LABS: BASOPHILS % (AUTO) 0.5 % (0.0-2.0); EOSINOPHILS # (AUTO) 0.6 K/uL (0-0.4); EOSINOPHILS % (AUTO) 6.8 % (0.0-4.0); HEMATOCRIT 27.3 % (36-52); HEMOGLOBIN 8.9 g/dL (12.0-18.0); LYMPHOCYTES # (AUTO) 1.7 K/uL (2.0-11.5); LYMPHOCYTES % (AUTO) 20.6 % (20.5-51.1); MEAN CORPUSCULAR HEMOGLOBIN 26 pg (27-31); MEAN CORPUSCULAR HGB CONC 33 g/dL (33-37); MEAN CORPUSCULAR VOLUME 81.1 fL (80-94); MONOCYTES # (AUTO) 0.6 K/uL (0.8-1.0); MONOCYTES % (AUTO) 7.5 % (1.7-9.3); NEUTROPHILS # (AUTO) 5.3 K/uL (1.8-7.7); NEUTROPHILS % (AUTO) 64.6 % (42.2-75.2); PLATELET COUNT (AUTO) 702 K/uL (140-450); RED BLOOD CELL COUNT(AUTO) 3.37 MIL/uL (4.20-6.10); RED CELL DISTRIBUTION WIDTH 17.3 % (11.6-13.7); WHITE BLOOD COUNT (AUTO) 8.1 K/uL (4.8-10.8)
[2023-02-10] MEDS: POTASSIUM CHL 20 MEQ/D5-1/2NS 1,000 ML IV SCH (06:05)
[2023-02-10 06:30] LABS: CARBON DIOXIDE 18.6 mmol/L (21-32); CREATININE 0.9 mg/dL (0.6-1.3); POTASSIUM 3.6 mmol/L (3.5-5.1)
--- NOTE | 2023-02-10 07:25 | NUR ---
ENDORSED PT TO AM NURSE FOR CONTINUITY OF CARE. PT IS STABLE
--- NOTE | 2023-02-10 07:54 | NUR ---
GOT REPORT FROM THE NIGHT NURSE, TRACK TO VENT IN PLACE. [id number]
[2023-02-10] MEDS: METOPROLOL 25 MG TAB GT SCH (08:32)
[2023-02-10] MEDS: METOCLOPRAMIDE 10 MG/2 ML INJ VIAL IVP SCH ×2 (08:33→12:52)
[2023-02-10] MEDS: FAMOTIDINE 20 MG/2 ML VIAL IVP SCH (08:33)
[2023-02-10] MEDS: VALPROIC ACID 250 MG/5 ML UDC PO SCH ×2 (08:34→12:52)
[2023-02-10] MEDS ORDERED: MERO1VIA15 IV (15:02)
--- NOTE | 2023-02-10 15:34 | NUR ---
PATIENT TRANSFER TO SNF [facility]IA [facility] , ARM BAND AND HEART MONITOR REMOVED VASQUEZ CATHTER REMOVED TOO , NEW IV 22GAGE LEFT FORARM INSERTED , ALL HIS BELONGING TAKEN WITH STUFF OF AMBULANCE , REPORT GIVEN EARLY FORE SNF , HIS INFORMED EARLY PATIENT WILL TRANSFER TO SNF AT 1400 PM , AND HIS AGREE .
== END 2023-02-10 15:25 | DRG 792 ==
LOC: MED 21:30 → EDSEX 21:30 → MTU 01-28 00:17
PROVIDERS: ADMIT Internal Medicine; ATTEND Internal Medicine
PROC: 0DP6XUZ Removal of Feeding Device from Stomach, External Approach (ICD-10-PCS; 2023-01-31)
PROC: 5A1955Z Respiratory Ventilation, Greater than 96 Consecutive Hours (ICD-10-PCS; principal; 2023-02-01)
PROC: 0DB60ZZ Excision of Stomach, Open Approach (ICD-10-PCS; 2023-02-03)
PROC: 0WQF0ZZ Repair Abdominal Wall, Open Approach (ICD-10-PCS; 2023-02-03)
PROC: 0WBF0ZZ Excision of Abdominal Wall, Open Approach (ICD-10-PCS; 2023-02-03)
PROC: 0DH60UZ Insertion of Feeding Device into Stomach, Open Approach (ICD-10-PCS; 2023-02-03)
DX: T85.598A Other mechanical complication of other gastrointestinal prosthetic devices, implants and grafts, initial encounter (principal); K31.6 Fistula of stomach and duodenum; G93.40 Encephalopathy, unspecified; J15.1 Pneumonia due to Pseudomonas; R53.2 Functional quadriplegia; E87.0 Hyperosmolality and hypernatremia; J96.11 Chronic respiratory failure with hypoxia; L03.311 Cellulitis of abdominal wall; M48.56XA Collapsed vertebra, not elsewhere classified, lumbar region, initial encounter for fracture; E83.39 Other disorders of phosphorus metabolism; E87.1 Hypo-osmolality and hyponatremia; B37.49 Other urogenital candidiasis; Y83.3 Surgical operation with formation of external stoma as the cause of abnormal reaction of the patient, or of later complication, without mention of misadventure at the time of the procedure; F09 Unspecified mental disorder due to known physiological condition; L25.9 Unspecified contact dermatitis, unspecified cause; E87.6 Hypokalemia; E83.42 Hypomagnesemia; N21.0 Calculus in bladder; Z20.822 Contact with and (suspected) exposure to COVID-19; R13.10 Dysphagia, unspecified; E86.1 Hypovolemia; I10 Essential (primary) hypertension; N20.0 Calculus of kidney; Z93.0 Tracheostomy status; Z87.442 Personal history of urinary calculi; Y92.89 Other specified places as the place of occurrence of the external cause; Z86.73 Personal history of transient ischemic attack (TIA), and cerebral infarction without residual deficits
CPT/HCPCS: 36415; 36600; 70450; 71045; 74018; 80048; 80053; 80202; 81001; 81003; 82803; 83605; 83735; 84100; 84132; 84484; 85025; 85610; 85730; 87040; 87070; 87081; 87086; 87205; 89220; 93005; 94002; 94003; 94640; 96361; 96365; 96374; 96375; 99291; J0696; J1644; J2060; J2175; J2185; J2270; J2543; J2765; J3010; J3370; J3475; J3480; J3490; J7060; J7120; Q0092; Q9967